=== PATIENT | male | born 1940 | race Two or more races ===

== ENCOUNTER → 2017-11-12 15:33 | Outpatient (CLI) | payer MEDICARE, BC, SELFPAY | PROVIDERS: Family Provider Family Medicine Geriatric Medicine; PCP Family Medicine Geriatric Medicine; Visit Provider Family Medicine Geriatric Medicine | DX: R68.83 Chills (without fever) (principal) | CPT/HCPCS: 87633 ==

== ENCOUNTER → 2017-11-27 08:20 | Outpatient (CLI) | payer MEDICARE, BC, SELFPAY ==
[2017-11-27 10:07] LABS: AST(SGOT) 21 U/L (15-37); Alanine Aminotransfer ALT/SGPT 23 U/L (16-61); Albumin, Serum 3.9 g/dL (3.2-5.0); Alkaline Phosphatase 55 U/L (45-117); Bilirubin, Direct 0.21 mg/dL (0.00-0.30); Cholesterol 180 mg/dL (200); Globulin 3.4 g/dL (2.2-4.2); High Density Lipoprotein 55 mg/dL; Protein, Total 7.3 g/dL (6.4-8.2); Triglycerides 99 mg/dL; Very Low Density Lipoprotein 20 mg/dL (5-40)
== END ==
PROVIDERS: Family Provider Family Medicine Geriatric Medicine; PCP Family Medicine Geriatric Medicine; Visit Provider Physician Assistant Medical
DX: E78.5 Hyperlipidemia, unspecified (principal); Z79.899 Other long term (current) drug therapy
CPT/HCPCS: 36415; 80061; 80076

== ENCOUNTER → 2017-12-18 09:36 | Outpatient (CLI) | payer MEDICARE, BC, SELFPAY ==
[2017-12-18 13:45] LABS: Absolute Lymphocyte Count 2.21 X10^3/ul (0.83-4.51); Absolute Neutrophil Count 3.9 X10^3/uL (2.0-7.7); Basophil# 0.02 X10^3/uL; Basophil% 0.3 % (0-1); Eosinophil# 0.16 X10^3/uL; Eosinophils% 2.3 % (0-5); Hematocrit 37.6 % (40-54); Lymphocyte # 2.21 X10^3/ul (4.0); Mean Corp Hgb Conc 34.6 g/gl (32-36); Mean Corpuscular Hgb 33.8 pg (27.0-32.0); Mean Corpuscular Volume 97.7 fL (80-94); Mean Platelet Vol. 11.8 fl (6.2-12.0); Monocyte# 0.62 X10^3/uL; Neutrophil # 3.88 X10^3/uL (2.7-7.7); Neutrophil % 56.3 % (47-70); POSITIVE COUNT NO; POSITIVE DIFFERENTIAL NO; POSITIVE MORPHOLOGY NO; Platelet Count 166 K/mm3 (150-450); RBC Distribution Width CV 14.6 % (11.6-14.6); RBC Distribution Width SD 50.5 fl (35.1-43.9); Red Blood Count 3.85 M/mm3 (4.6-6.2); White Blood Count 6.9 K/mm3 (4.4-11.0)
[2017-12-18 14:14] LABS: ALB/GLOB Ratio 1.2 RATIO (0.9-2.4); AST(SGOT) 22 U/L (15-37); Alanine Aminotransfer ALT/SGPT 24 U/L (16-61); Albumin, Serum 3.8 g/dL (3.2-5.0); Alkaline Phosphatase 58 U/L (45-117); Anion Gap 5 (5-15); BUN 20 mg/dL (7-18); BUN/Creat Ratio 18.7 RATIO (10-20); Calcium,Total 9.2 mg/dL (8.5-10.1); Chloride 107 mmol/L (98-107); Creatinine, Serum 1.07 mg/dL (0.70-1.30); EST Glomerular Filtration Rate 71 mL/min (>60); Est Glom Filt Rate - Afr Amer 86 mL/min (>60); Globulin 3.3 g/dL (2.2-4.2); Glucose 93 mg/dL (74-106); Potassium 4.1 mmol/L (3.5-5.1); Protein, Total 7.1 g/dL (6.4-8.2); Sodium Level 139 mmol/L (136-145); Thyroid Stim Hormone (TSH) 0.71 uIU/mL (0.358-3.74); Uric Acid 5.6 mg/dL (3.5-7.2)
[2017-12-19 10:00] LABS: Vitamin D,25 Hydroxy 22.4 ng/mL (29.95-100.01)
== END ==
PROVIDERS: Family Provider Family Medicine Geriatric Medicine; PCP Family Medicine Geriatric Medicine; Visit Provider Family Medicine Geriatric Medicine
DX: E55.9 Vitamin D deficiency, unspecified (principal); F52.8 Other sexual dysfunction not due to a substance or known physiological condition; M10.9 Gout, unspecified; R53.83 Other fatigue
CPT/HCPCS: 36415; 80053; 82306; 84403; 84443; 84550; 85025

== ENCOUNTER → 2018-06-03 08:47 | Outpatient (CLI) | payer MEDICARE, BC, SELFPAY ==
[2018-06-03 10:14] LABS: AST(SGOT) 23 U/L (15-37); Alanine Aminotransfer ALT/SGPT 20 U/L (16-61); Albumin, Serum 3.7 g/dL (3.2-5.0); Alkaline Phosphatase 54 U/L (45-117); Bilirubin, Direct 0.19 mg/dL (0.00-0.30); Cholesterol 165 mg/dL (200); Globulin 3.5 g/dL (2.2-4.2); High Density Lipoprotein 49 mg/dL; Protein, Total 7.2 g/dL (6.4-8.2); Triglycerides 78 mg/dL; Very Low Density Lipoprotein 16 mg/dL (5-40)
== END ==
LOC: LAB 08:50 → MTLAB 08:50
PROVIDERS: Family Provider Family Medicine Geriatric Medicine; PCP Family Medicine Geriatric Medicine; Referring Provider Physician Assistant Medical; Visit Provider Physician Assistant Medical
DX: E78.5 Hyperlipidemia, unspecified (principal)
CPT/HCPCS: 36415; 80061; 80076

== ENCOUNTER 2018-11-21 05:16 | Observation (INO) | payer MEDICARE, BC, SELFPAY ==
[2018-11-21] VITALS (7 sets, daily range): BP systolic 132–192; BP diastolic 78–98; PULSE 67–101; RESP 16–18; TEMP 36.4–37.4; O2SAT 97–100; BMI 28.8; BMI 29.4
--- NOTE | 2018-11-21 05:37 | EKG12_ITS ---
Test Reason : DIZZINESS Blood Pressure : / mmHG Vent. Rate : 065 BPM Atrial Rate : 065 BPM P-R Int : 170 ms QRS Dur : 150 ms QT Int : 424 ms P-R-T Axes : 053 -53 003 degrees QTc Int : 440 ms Normal sinus rhythm Right bundle branch block Left anterior fascicular block Bifascicular block Septal infarct , age undetermined Abnormal ECG Confirmed by CRICKET PADRON ([id number]), editor & co founder KOSTA PICHARDO ([id number] on 11/23/2018 4:41:36 PM Referred By: GEORGINA Confirmed By:CRICKET PADRON
[2018-11-21 05:43] LABS: Absolute Lymphocyte Count 3.56 X10^3/ul (0.83-4.51); Absolute Neutrophil Count 2.6 X10^3/uL (2.0-7.7); Basophil# 0.04 X10^3/uL; Basophil% 0.6 % (0-1); Eosinophil# 0.28 X10^3/uL; Hematocrit 38.3 % (40-54); Hemoglobin 13.5 g/dl (13.0-16.5); Lymphocyte # 3.56 X10^3/ul (4.0); Lymphocyte % 50.7 % (19-41); Mean Corp Hgb Conc 35.2 g/gl (32-36); Mean Corpuscular Hgb 33.1 pg (27.0-32.0); Mean Corpuscular Volume 93.9 fL (80-94); Mean Platelet Vol. 11.1 fl (6.2-12.0); Monocyte# 0.54 X10^3/uL; Monocyte% 7.7 % (0-10); Neutrophil # 2.58 X10^3/uL (2.7-7.7); Neutrophil % 36.7 % (47-70); POSITIVE COUNT NO; POSITIVE DIFFERENTIAL NO; POSITIVE MORPHOLOGY NO; Platelet Count 194 K/mm3 (150-450); RBC Distribution Width CV 14.9 % (11.6-14.6); RBC Distribution Width SD 49.2 fl (35.1-43.9); Red Blood Count 4.08 M/mm3 (4.6-6.2)
[2018-11-21] MEDS: Ondansetron 4 MG/2 ML Vial IV ×2 (05:54→06:49)
[2018-11-21] MEDS: 0.9% Normal Saline 1,000 ML 1000 ML IV (05:54)
--- NOTE | 2018-11-21 05:57 | ED.DCSUM_ITS ---
- ER Visit Summary Date of Service: 11/21/18 Chief Complaint: Dizziness History of Present Illness: The patient is a 78 M who states that he woke this morning and use the bathroom came back and sat on the bed and felt dizzy. states that he was sweaty. After little bit they decided to come to the formerly [facility] department because he has history of coronary artery disease. At no point did he have chest pain or shortness of breath. No headache. He did not feel that the room was spinning. He was able to drive himself to the department. Patient states that once here he had some vomiting. He reports overall he feels significantly better but still has some nausea. He denies any abdominal pain. No abdominal distention. The patient reports that the only thing he did atypical yesterday was eat some dried bananas and seeds before bedtime. Physical Examination: Afebrile noted hypertension 192/98 otherwise vital signs are stable the blood pressure was taken while the patient vomiting Gen: Well-nourished well-developed Head: Normocephalic atraumatic Eyes: Perrl EOMI no nystagmus ENT: TMs clear no rhinorrhea moist mucous membranes Neck: Supple no lymphadenopathy no JVD nontender CVS: Regular rate rhythm no murmurs normal S1-S2 Respiratory: No distress clear to auscultation bilaterally chest nontender Abdomen: Soft nontender nondistended normal bowel sounds no masses Back: Nontender Extremity: Nontender no edema Skin: Normal color no rash Neuro: alert orientated ?3 CN II-XII intact normal strength sensation reflexes gait cerebellar Psych: Normal affect normal mood Test Results: EKG shows a sinus rhythm with right bundle branch block and left anterior fascicular block. This appears unchanged from prior EKG. CBC and CMP were normal. Emergency Department Course and Treatment: The patient received IV fluids and Zofran. Repeat examination the patient's blood pressure is down to 163/88. He states he continues to have no dizziness or lightheadedness. He states he still has some nausea. He ambulated and did well. He said he felt well. However when he got back to the room he vomited. Patient received additional Zofran and head CT was ordered. This was negative. After CT I reevaluated the patient. He tells me he is now feeling dizzy. He does have a nystagmus with the fast component to the right. I am going to give some valium. Impression: 1. Dizziness 2. Vomiting This note was generated with [employer] dictation software. It may contain incorrect words, spelling, and punctuation that were not noted in review of the chart prior to signing ED Disposition - Plan for ED Patient: Disposition: Home or Assisted Living Instructions: ED Nausea Vomiting Prescriptions: Ondansetron [Zofran Odt] 4 mg PO Q6H PRN PRN #14 tab PRN Reason: Nausea Referrals: Jones Madrigal Chi, MD [Primary Care Provider] - As Needed
[2018-11-21 05:59] LABS: ALB/GLOB Ratio 1.1 RATIO (0.9-2.4); AST(SGOT) 41 U/L (15-37); Alanine Aminotransfer ALT/SGPT 25 U/L (16-61); Alkaline Phosphatase 73 U/L (45-117); Anion Gap 5 (5-15); BUN 20 mg/dL (7-18); BUN/Creat Ratio 17.1 RATIO (10-20); Calcium,Total 9.2 mg/dL (8.5-10.1); Chloride 109 mmol/L (98-107); Creatinine, Serum 1.17 mg/dL (0.70-1.30); EST Glomerular Filtration Rate 64 mL/min (>60); Est Glom Filt Rate - Afr Amer 78 mL/min (>60); Estimated Creatinine Clearance 47.71 ml/min; Globulin 3.8 g/dL (2.2-4.2); Glucose 130 mg/dL (74-106); Potassium 4.8 mmol/L (3.5-5.1); Protein, Total 7.8 g/dL (6.4-8.2); Sodium Level 140 mmol/L (136-145)
--- NOTE | 2018-11-21 06:42 | CT_ITS ---
STUDY: CT BRAIN WITHOUT CONTRAST REASON FOR EXAM: Male, 78 years old. Dizziness RADIATION DOSAGE (If Supplied By Facility): CTDIvol = ( 44.99 ) mGy, DLP = ( 745.49 ) mGycm TECHNIQUE: Transaxial CT imaging of the brain was performed without administration of intravenous contrast material. Individualized dose optimization techniques were used for this CT. COMPARISON: No relevant priors. FINDINGS: Normal soft tissue structures. Normal calvarium. Normal size ventricles and extra-axial spaces for the patient's age. Normal white matter tracts of the cerebral hemispheres. Normal basal ganglia and thalami. Normal brainstem. Normal cerebellum. There is no intracranial hemorrhage. There are no findings of an acute ischemic infarction. Normal visualized paranasal sinuses. CT/Brain/Head without Contrast IMPRESSION: Normal unenhanced CT scan of the brain. No acute findings in the brain Electronically Signed: Jono Walls MD at 7:23 EDT Tel , Service support ,
[2018-11-21] MEDS: diazePAM 5 MG Tablet 2.5 MG PO (08:37)
--- NOTE | 2018-11-21 09:21 | ED.VISSUMM ---
- ER Visit Summary Date of Service: 11/21/18 Chief Complaint: [Addendum to the initial dictation by Dr. Phan Paz] History of Present Illness: The patient is a 78 M [presented to the emergency department with complaint of dizziness and vomiting that started this morning. Patient was fully evaluated by Dr. Paz and workup including blood work and CT scan of the brain were unremarkable. Patient was noted to have nystagmus and it was felt that likely he had benign positional vertigo. Patient was ordered Valium and I was asked to reevaluate the patient after treatment.] Physical Examination: [] Test Results: [] Emergency Department Course and Treatment: [After Valium patient continues to complain of dizziness and does not feel he can ambulate. Patient continues to complain of nausea with standing.] Treatment Plan: [Admit] Disposition: [Admit] Impression: [Vertigo Difficulty ambulating Intractable nausea] This note was generated with [employer] dictation software. It may contain incorrect words, spelling, and punctuation that were not noted in review of the chart prior to signing ED Disposition - Plan for ED Patient: Disposition: Home or Assisted Living Instructions: ED Nausea Vomiting Prescriptions: Ondansetron [Zofran Odt] 4 mg PO Q6H PRN PRN #14 tab PRN Reason: Nausea Referrals: Jones Madrigal Chi, MD [Primary Care Provider] - As Needed
[2018-11-21] MEDS: Enoxaparin 40 MG/0.4 ML Syringe SC (12:24)
[2018-11-21] MEDS: Lisinopril 10 MG Tablet PO (12:25)
[2018-11-21] MEDS: Aspirin E.C. 81 MG Tablet PO (12:25)
[2018-11-21] MEDS: Metoprolol(XL)Succ 100 MG Tablet PO (12:25)
[2018-11-21] MEDS: Clopidogrel Bisulfate 75 MG Tablet PO (12:25)
[2018-11-21] MEDS: Allopurinol 300 MG Tablet PO (12:26)
--- NOTE | 2018-11-21 14:41 | HP.PCM_ITS ---
Problem List (1) HTN (hypertension) Status: Chronic (2) Carotid bruit Status: Chronic (3) Atherosclerotic heart disease of [place] coronary artery without angina pectoris Status: Chronic (4) HLD (hyperlipidemia) Status: Chronic History of Present Illness Date of Admission: 11/21/18 Chief Complaint: Vertigo, nausea with emesis. The patient is a 78 year old M who presents emergency room due to acute vertigo with nausea and emesis which began early this morning. He states he normally wakes up very early in the morning and this morning upon waking he had sudden spinning sensation in which he did not feel stable on his feet with subsequent nausea and vomiting. He denies chest pain, shortness of breath. He reports he recently had an upper respiratory infection which has since resolved. Denies abdominal pain, diarrhea. Denies other associated complaints. He has a past medical history of CAD, hypertension, hyperlipidemia, gout, alcohol abuse. Past Medical History Past Medical History (Chronic Problems): Chronic Problems (Last Reviewed 06/19/18 @ 10:04 by Andrei Henry MD) HTN (hypertension) (Chronic) Carotid bruit (Chronic) Atherosclerotic heart disease of [place] coronary artery without angina pectoris (Chronic) HLD (hyperlipidemia) (Chronic) Medical History: Medical History (Last Reviewed 06/19/18 @ 10:04 by Andrei Henry MD) HTN (hypertension) (Chronic) I10 Carotid bruit (Chronic) R09.89 Atherosclerotic heart disease of [place] coronary artery without angina pectoris (Chronic) I25.10 HLD (hyperlipidemia) (Chronic) E78.5 Hypothyroidism E03.9 Allergies No Known Allergies Allergy (Verified 11/21/18 05:17) Home Medications: Ambulatory Orders Medication Instructions Recorded allopurinol 300 mg tablet 300 mg PO QDAY 90 Days #90 tab 12/01/17 aspirin 81 mg tablet,delayed 81 mg PO QDAY 12/01/17 release multivitamin tablet 1 tab PO QDAY 12/01/17 nitroglycerin 0.4 mg sublingual 0.4 mg SUBLINGUAL Q5-15M PRN 12/01/17 tablet selenium 200 mcg tablet 200 mcg PO QDAY 12/01/17 vitamin B complex tablet 1 tab PO QDAY 12/01/17 sildenafil 100 mg tablet 100 mg PO QDAY PRN 68 Days #68 tab 12/04/17 atorvastatin 40 mg tablet 40 mg PO QDAY 90 Days #90 tab 05/28/18 clopidogrel 75 mg tablet 75 mg PO QDAY 90 Days #90 tab 05/28/18 metoprolol succinate ER 100 mg 100 mg PO QDAY 90 Days #90 tab 05/28/18 tablet,extended release 24 hr Lisinopril [Prinivil] 10 mg PO QDAY 11/21/18 Ondansetron [Zofran Odt] 4 mg PO Q6H PRN PRN #14 tab 11/21/18 Surgical History: Surgical History (Last Reviewed 11/21/18 @ 14:40 by ARMANDO Joel) History of rectal polypectomy Onset Date: ~1997 Z98.890, Z87.19 History of total bilateral knee replacement (TKR) Onset Date: ~03/13/07 Z96.653 hx dengue fever Onset Date: ~05/27/05 [facility] History of left heart catheterization Onset Date: 02/21/06 Z98.890 Surgical History: - - Hernia repair. Psychiatric History: No pertinent psych hx Lives: Spouse/ Significant Other Smoking Status: Former smoker Alcohol: Heavy Drugs: None - *Family History Maternal Family History: Family History (Last Reviewed 11/21/18 @ 14:41 by ARMANDO Joel) Mother Hypertension Sister Hypertension Paternal Family History: Family History (Last Reviewed 11/21/18 @ 14:41 by ARMANDO Joel) Mother Hypertension Sister Hypertension History Items: - - Denies known paternal medical history including cardiac history. Review of Systems Constitutional: Denies: Chills, Fever, Weight Change HEENT: Denies: Head Aches, Sinus Congestion, Sinus Drainage Cardiovascular: Reports: - - Dizziness. Denies: Chest Pain, Edema, Palpitations, Syncope Respiratory: Denies: Cough, Shortness of breath at rest, Sputum production Gastrointestinal: Reports: Nausea, Vomiting. Denies: Abdominal Pain, Diarrhea Genitourinary: Denies: Dysuria Musculoskeletal: Denies: Joint Pain, Joint Tenderness Skin: Denies: Rash, Wounds Neurological: Denies: Numbness, Tingling, Focal weakness Psychiatric: Denies: Anxiety, Depression, Homicidal Ideations, Suicidal Ideations Hematologic/ Lymphatic: Denies: Easy Bruising, Easy Bleeding VTE Information - Inpt Only VTE Present on Admission: No VTE Mechan Device Prophylaxis: None VTE Pharm Prophylaxis ordered?: Yes - Physical Exam General: Alert, Oriented x3, Cooperative HEENT: Atraumatic, PERRLA, EOMI, Normocephalic Oral: Dry Mucosa Neck: Supple, No JVD, Negative Carotid Bruits Lungs: Clear to auscultation, Normal air movement Cardiovascular: Regular rate, Regular Rhythm, Normal S1, Normal S2, No murmurs Abdomen: Bowel Sounds Present, Soft, Non Tender, Non-Distended Extremities: No clubbing, No cyanosis, No edema, Capillary Refill Less than 3 Seconds Skin: No rashes, No breakdown Musculoskeletal: No Tenderness to Palpation of Joints or Extremities Neurological: Cranial nerves II-XII grossly intact, Neuro grossly intact Psych/Mental Status: Normal Affect, Appropriate Vital Signs Temp Pulse Resp BP Pulse Ox 97.9 F 81 16 154/85 H 97 11/21/18 10:48 11/21/18 12:25 11/21/18 10:48 11/21/18 10:48 11/21/18 10:48 Oxygen Delivery Method Room Air Weight: 176 lb 12.972 oz Body Mass Index (BMI) 29.4 Laboratory Tests Past 24 Hrs 11/21/18 11/21/18 05:28 05:28 WBC 7.0 RBC 4.08 L Hgb 13.5 Hct 38.3 L MCV 93.9 MCH 33.1 H MCHC 35.2 RDW 14.9 H RDW Differential 49.2 H Plt Count 194 MPV 11.1 Immature Gran % (Auto) 0.300 Neut % (Auto) 36.7 L Lymph % (Auto) 50.7 H [place] % (Auto) 7.7 Eos % (Auto) 4.0 Baso % (Auto) 0.6 Absolute Neuts (auto) 2.6 Absolute Lymphs (auto) 3.56 Total Counted Not Reportable Sodium 140 Potassium 4.8 Chloride 109 H Carbon Dioxide 26.0 Anion Gap 5 BUN 20 H Creatinine 1.17 Estim Creat Clear Calc 47.71 Est GFR (MDRD) Af Amer 78 Est GFR (MDRD) Non-Af 64 BUN/Creatinine Ratio 17.1 Glucose 130 H Calcium 9.2 Total Bilirubin 0.40 AST 41 H ALT 25 Alkaline Phosphatase 73 Total Protein 7.8 Albumin 4.0 Globulin 3.8 Albumin/Globulin Ratio 1.1 Assessment/Plan 1. Vertigo with intractable nausea-improved since admission. Continue scheduled Valium and as needed antiemetics. Anticipate discharge home tomorrow. Brain CT on admission normal. PT/OT. 2. CAD-continue aspirin, statin, Plavix, metoprolol. 3. Hypertension-stable, continue home lisinopril, metoprolol regimen. 4. Hyperlipidemia-continue statin. 5. Gout-continue allopurinol regimen. 6. Alcohol abuse-patient reports 5-6 drinks per day. AST mildly elevated. Encouraged reduction in alcohol use. DVT prophylaxis-Lovenox subcu This patient was seen by ARMANDO Joel under the supervision of Dr. Vallecillo.
[2018-11-21] MEDS: diazePAM 2 MG Tablet 4 MG PO ×3 (14:59→21:15)
[2018-11-21] MEDS: Atorvastatin Calcium 40 MG Tablet PO (21:12)
[2018-11-22 02:11] VITALS: BP 131/77; PULSE 67; RESP 16; TEMP 36.5; O2SAT 98
[2018-11-22 08:11] VITALS: BP 147/75; PULSE 69; RESP 18; TEMP 36.8; O2SAT 98
[2018-11-22 08:44] VITALS: BP 147/75; PULSE 69
[2018-11-22] MEDS: Aspirin E.C. 81 MG Tablet PO (08:44)
[2018-11-22] MEDS: Metoprolol(XL)Succ 100 MG Tablet PO (08:44)
[2018-11-22] MEDS: Enoxaparin 40 MG/0.4 ML Syringe SC (08:44)
[2018-11-22] MEDS: Allopurinol 300 MG Tablet PO (08:44)
[2018-11-22] MEDS: Clopidogrel Bisulfate 75 MG Tablet PO (08:44)
[2018-11-22] MEDS: Lisinopril 10 MG Tablet PO (08:45)
[2018-11-22] MEDS: diazePAM 2 MG Tablet 4 MG PO (08:49)
--- NOTE | 2018-11-22 09:51 | DCINST_ITS ---
You will use the following diet at home:: Cardiac Discharge Activity: Return to Normal Activity Call your doctor if you observe: Numbness or Tingling, Shortness of breath, Dizziness, Fainting spells, Chest pain Instructions: ED Nausea Vomiting Allergies/Adverse Reactions: Allergies No Known Allergies Allergy (Verified 11/21/18 05:17) Medications to take at Discharge allopurinol 300 mg tablet 300 mg PO QDAY 90 Days #90 tab 12/01/17 aspirin 81 mg tablet,delayed release 81 mg PO QDAY 12/01/17 multivitamin tablet 1 tab PO QDAY 12/01/17 nitroglycerin 0.4 mg sublingual tablet 0.4 mg SUBLINGUAL Q5-15M PRN 12/01/17 selenium 200 mcg tablet 200 mcg PO QDAY 12/01/17 vitamin B complex tablet 1 tab PO QDAY 12/01/17 sildenafil 100 mg tablet 100 mg PO QDAY PRN 68 Days #68 tab 12/04/17 atorvastatin 40 mg tablet 40 mg PO QDAY 90 Days #90 tab 05/28/18 clopidogrel 75 mg tablet 75 mg PO QDAY 90 Days #90 tab 05/28/18 metoprolol succinate ER 100 mg tablet,extended release 24 hr 100 mg PO QDAY 90 Days #90 tab 05/28/18 Lisinopril [Prinivil] 10 mg PO QDAY 11/21/18 Ondansetron [Zofran Odt] 4 mg PO Q6H PRN PRN #14 tab 11/21/18 Diazepam [Valium] 2 mg PO 4X/DAY PRN #12 tablet 11/22/18 The following prescriptions were given: Ondansetron [Zofran Odt] 4 mg PO Q6H PRN PRN #14 tab PRN Reason: Nausea Diazepam [Valium] 2 mg PO 4X/DAY PRN #12 tablet PRN Reason: Vertigo Primary Care Physician: Jones Madrigal Chi, MD [Primary Care Provider] - As Needed Please follow up with your Primary Care Physician in: 1 Week Test Results: Test results from this visit will be discussed in further detail at your follow- up appointment, if applicable. Please Follow Up With: Andrei Henry MD When: As scheduled Proposed Discharge Date: 11/22/18
--- NOTE | 2018-11-22 09:52 | PCM.DC.SUM ---
Discharge Date and Diagnosis Date of Admission: 11/21/18 Date of Discharge: 11/22/18 - Primary Discharge Diagnosis 1. Acute vertigo 2. CAD 3. Hypertension 4. Hyperlipidemia 5. Gout 6. Alcohol abuse - Secondary Discharge Diagnosis Chronic Problems (Last Reviewed 06/19/18 @ 10:04 by Andrei Henry MD) HTN (hypertension) (Chronic) Carotid bruit (Chronic) Atherosclerotic heart disease of [place] coronary artery without angina pectoris (Chronic) HLD (hyperlipidemia) (Chronic) Hospital Course and Treatment Imaging Results: Diagnostic Data Brain CT 11/21/18 06:42 IMPRESSION: Normal unenhanced CT scan of the brain. No acute findings in the brain Electronically Signed: Jono Walls MD at 7:23 EDT Tel , Service support , Operations: None Procedures: None Summary of Care Provided: The patient is a 78 year old M admitted 11/21/2018 due to vertigo, nausea with emesis. 1. Vertigo with intractable nausea-resolved. Brain CT on admission normal. PRN valium if vertigo returns. Patient reports he has had vertigo symptoms in the past as well. Recommended follow up with ENT if symptoms return. Follow-up with primary care physician in 1 week. 2. CAD-continue aspirin, statin, Plavix, metoprolol. 3. Hypertension-stable, continue home lisinopril, metoprolol regimen. 4. Hyperlipidemia-continue statin. 5. Gout-continue allopurinol regimen. 6. Alcohol abuse-patient reports 5-6 drinks per day. AST mildly elevated. Encouraged reduction in alcohol use. General: Alert, Oriented x3, Cooperative HEENT: Atraumatic, PERRLA, EOMI, Normocephalic Oral: Dry Mucosa Neck: Supple, No JVD, Negative Carotid Bruits Lungs: Clear to auscultation, Normal air movement Cardiovascular: Regular rate, Regular Rhythm, Normal S1, Normal S2, No murmurs Abdomen: Bowel Sounds Present, Soft, Non Tender, Non-Distended Extremities: No clubbing, No cyanosis, No edema, Capillary Refill Less than 3 Seconds Skin: No rashes, No breakdown Musculoskeletal: No Tenderness to Palpation of Joints or Extremities Neurological: Cranial nerves II-XII grossly intact, Neuro grossly intact Psych/Mental Status: Normal Affect, Appropriate Patient seen and examined prior to discharge. Physical assessment as noted above. Patient is stable for discharge with follow up recommendations as noted above. This patient was seen by ARMANDO Joel under the supervision of Dr. Vallecillo. - Physical Exam Vital Signs Temp Pulse Resp BP Pulse Ox 98.2 F 69 18 147/75 H 98 11/22/18 08:11 11/22/18 08:44 11/22/18 08:11 11/22/18 08:44 11/22/18 08:11 Oxygen Delivery Method Room Air Weight: 176 lb 12.972 oz Body Mass Index (BMI) 29.4 Intake and Output for Last 24 Hours 11/20/18 11/21/18 11/22/18 23:59 23:59 23:59 Intake Total 1300 / 1300 Output Total 650 / 650 1100 / 1100 Balance -650 / -650 200 / 200 Discharge Diet: Low fat/ Low Cholesterol Discharge Activity: Return to Normal Activity Call your doctor if you observe: Numbness or Tingling, Shortness of breath, Dizziness, Fainting spells, Chest pain Home Medications: Medications to take at Discharge allopurinol 300 mg tablet 300 mg PO QDAY 90 Days #90 tab 12/01/17 aspirin 81 mg tablet,delayed release 81 mg PO QDAY 12/01/17 multivitamin tablet 1 tab PO QDAY 12/01/17 nitroglycerin 0.4 mg sublingual tablet 0.4 mg SUBLINGUAL Q5-15M PRN 12/01/17 selenium 200 mcg tablet 200 mcg PO QDAY 12/01/17 vitamin B complex tablet 1 tab PO QDAY 12/01/17 sildenafil 100 mg tablet 100 mg PO QDAY PRN 68 Days #68 tab 12/04/17 atorvastatin 40 mg tablet 40 mg PO QDAY 90 Days #90 tab 05/28/18 clopidogrel 75 mg tablet 75 mg PO QDAY 90 Days #90 tab 05/28/18 metoprolol succinate ER 100 mg tablet,extended release 24 hr 100 mg PO QDAY 90 Days #90 tab 05/28/18 Lisinopril [Prinivil] 10 mg PO QDAY 11/21/18 Ondansetron [Zofran Odt] 4 mg PO Q6H PRN PRN #14 tab 11/21/18 Diazepam [Valium] 2 mg PO 4X/DAY PRN #12 tablet 11/22/18 Following Prescrptions Were Given to Patient: Ondansetron [Zofran Odt] 4 mg PO Q6H PRN PRN #14 tab PRN Reason: Nausea Diazepam [Valium] 2 mg PO 4X/DAY PRN #12 tablet PRN Reason: Vertigo Primary Care Physician: Jones Madrigal Chi, MD [Primary Care Provider] - As Needed Please follow up with your Primary Care Physician in: 1 Week Please Follow Up With: Andrei Henry MD When: As scheduled Patient Instructions: ED Nausea Vomiting Disposition: Home Minutes spent on discharge:: 35 Patient Condition:: Stable Medical Necessity - Tobacco Use Smoking Status: Former smoker Meaningful Use Info Meaningful Use Diagnoses (Choose all that apply): None applicable
--- NOTE | 2018-11-22 09:56 | DS.PCM_ITS ---
Discharge Date and Diagnosis Date of Admission: 11/21/18 Date of Discharge: 11/22/18 - Primary Discharge Diagnosis 1. Acute vertigo 2. CAD 3. Hypertension 4. Hyperlipidemia 5. Gout 6. Alcohol abuse - Secondary Discharge Diagnosis Chronic Problems (Last Reviewed 06/19/18 @ 10:04 by Andrei Henry MD) HTN (hypertension) (Chronic) Carotid bruit (Chronic) Atherosclerotic heart disease of [place] coronary artery without angina pectoris (Chronic) HLD (hyperlipidemia) (Chronic) Hospital Course and Treatment Imaging Results: Diagnostic Data Brain CT 11/21/18 06:42 IMPRESSION: Normal unenhanced CT scan of the brain. No acute findings in the brain Electronically Signed: Jono Walls MD at 7:23 EDT Tel , Service support , Operations: None Procedures: None Summary of Care Provided: The patient is a 78 year old M admitted 11/21/2018 due to vertigo, nausea with emesis. 1. Vertigo with intractable nausea-resolved. Brain CT on admission normal. PRN valium if vertigo returns. Patient reports he has had vertigo symptoms in the past as well. Recommended follow up with ENT if symptoms return. Follow-up with primary care physician in 1 week. 2. CAD-continue aspirin, statin, Plavix, metoprolol. 3. Hypertension-stable, continue home lisinopril, metoprolol regimen. 4. Hyperlipidemia-continue statin. 5. Gout-continue allopurinol regimen. 6. Alcohol abuse-patient reports 5-6 drinks per day. AST mildly elevated. Enc ouraged reduction in alcohol use. General: Alert, Oriented x3, Cooperative HEENT: Atraumatic, PERRLA, EOMI, Normocephalic Oral: Dry Mucosa Neck: Supple, No JVD, Negative Carotid Bruits Lungs: Clear to auscultation, Normal air movement Cardiovascular: Regular rate, Regular Rhythm, Normal S1, Normal S2, No murmurs Abdomen: Bowel Sounds Present, Soft, Non Tender, Non-Distended Extremities: No clubbing, No cyanosis, No edema, Capillary Refill Less than 3 Seconds Skin: No rashes, No breakdown Musculoskeletal: No Tenderness to Palpation of Joints or Extremities Neurological: Cranial nerves II-XII grossly intact, Neuro grossly intact Psych/Mental Status: Normal Affect, Appropriate Patient seen and examined prior to discharge. Physical assessment as noted above. Patient is stable for discharge with follow up recommendations as noted above. This patient was seen by ARMANDO Joel under the supervision of Dr. Vallecillo. - Physical Exam Vital Signs Temp Pulse Resp BP Pulse Ox 98.2 F 69 18 147/75 H 98 11/22/18 08:11 11/22/18 08:44 11/22/18 08:11 11/22/18 08:44 11/22/18 08:11 Oxygen Delivery Method Room Air Weight: 176 lb 12.972 oz Body Mass Index (BMI) 29.4 Intake and Output for Last 24 Hours 11/20/18 11/21/18 11/22/18 23:59 23:59 23:59 Intake Total 1300 / 1300 Output Total 650 / 650 1100 / 1100 Balance -650 / -650 200 / 200 Discharge Diet: Low fat/ Low Cholesterol Discharge Activity: Return to Normal Activity Call your doctor if you observe: Numbness or Tingling, Shortness of breath, Dizziness, Fainting spells, Chest pain Home Medications: Medications to take at Discharge allopurinol 300 mg tablet 300 mg PO QDAY 90 Days #90 tab 12/01/17 aspirin 81 mg tablet,delayed release 81 mg PO QDAY 12/01/17 multivitamin tablet 1 tab PO QDAY 12/01/17 nitroglycerin 0.4 mg sublingual tablet 0.4 mg SUBLINGUAL Q5-15M PRN 12/01/17 selenium 200 mcg tablet 200 mcg PO QDAY 12/01/17 vitamin B complex tablet 1 tab PO QDAY 12/01/17 sildenafil 100 mg tablet 100 mg PO QDAY PRN 68 Days #68 tab 12/04/17 atorvastatin 40 mg tablet 40 mg PO QDAY 90 Days #90 tab 05/28/18 clopidogrel 75 mg tablet 75 mg PO QDAY 90 Days #90 tab 05/28/18 metoprolol succinate ER 100 mg tablet,extended release 24 hr 100 mg PO QDAY 90 Days #90 tab 05/28/18 Lisinopril [Prinivil] 10 mg PO QDAY 11/21/18 Ondansetron [Zofran Odt] 4 mg PO Q6H PRN PRN #14 tab 11/21/18 Diazepam [Valium] 2 mg PO 4X/DAY PRN #12 tablet 11/22/18 Following Prescrptions Were Given to Patient: Ondansetron [Zofran Odt] 4 mg PO Q6H PRN PRN #14 tab PRN Reason: Nausea Diazepam [Valium] 2 mg PO 4X/DAY PRN #12 tablet PRN Reason: Vertigo Primary Care Physician: Jones Madrigal Chi, MD [Primary Care Provider] - As Needed Please follow up with your Primary Care Physician in: 1 Week Please Follow Up With: Andrei Henry MD When: As scheduled Patient Instructions: ED Nausea Vomiting Disposition: Home Minutes spent on discharge:: 35 Patient Condition:: Stable Medical Necessity - Tobacco Use Smoking Status: Former smoker Meaningful Use Info Meaningful Use Diagnoses (Choose all that apply): None applicable
[2018-11-22 12:38] VITALS: BP 180/90; PULSE 75; RESP 18; TEMP 36.5; O2SAT 99
== END 2018-11-22 12:45 | disposition home or self-care (01) ==
LOC: ED 06:59 → MS3 10:20
PROVIDERS: Admitting Provider Internal Medicine; Emergency Provider Emergency Medicine; Family Provider Family Medicine Geriatric Medicine; PCP Family Medicine Geriatric Medicine; Visit Provider Internal Medicine
DX: R42 Dizziness and giddiness (principal); I25.10 Atherosclerotic heart disease of native coronary artery without angina pectoris; I45.2 Bifascicular block; I10 Essential (primary) hypertension; E78.5 Hyperlipidemia, unspecified; M10.9 Gout, unspecified; F10.10 Alcohol abuse, uncomplicated; Z79.899 Other long term (current) drug therapy; Z79.82 Long term (current) use of aspirin; Z87.891 Personal history of nicotine dependence
CPT/HCPCS: 70450; 80053; 85025; 93005; 96372; 96374; 96376; 97161; 97165; 99218; 99285; J7030; A4216; G0378; J2405

== ENCOUNTER → 2018-12-24 11:38 | Outpatient (CLI) | payer MEDICARE, BC, SELFPAY ==
[2018-11-21 10:47] VITALS: BMI 29.4
[2018-12-24 12:48] LABS: Absolute Lymphocyte Count 2.13 X10^3/ul (0.83-4.51); Absolute Neutrophil Count 3.4 X10^3/uL (2.0-7.7); Basophil# 0.04 X10^3/uL; Basophil% 0.7 % (0-1); Eosinophil# 0.22 X10^3/uL; Eosinophils% 3.6 % (0-5); Hematocrit 40.4 % (40-54); Hemoglobin 13.6 g/dl (13.0-16.5); Lymphocyte # 2.13 X10^3/ul (4.0); Mean Corp Hgb Conc 33.7 g/gl (32-36); Mean Corpuscular Hgb 32.2 pg (27.0-32.0); Mean Corpuscular Volume 95.7 fL (80-94); Monocyte# 0.28 X10^3/uL; Monocyte% 4.6 % (0-10); Neutrophil % 55.9 % (47-70); POSITIVE COUNT NO; POSITIVE DIFFERENTIAL NO; POSITIVE MORPHOLOGY NO; Platelet Count 175 K/mm3 (150-450); RBC Distribution Width CV 14.3 % (11.6-14.6); RBC Distribution Width SD 48.2 fl (35.1-43.9); Red Blood Count 4.22 M/mm3 (4.6-6.2); White Blood Count 6.1 K/mm3 (4.4-11.0)
[2018-12-24 13:14] LABS: ALB/GLOB Ratio 1.1 RATIO (0.9-2.4); AST(SGOT) 27 U/L (15-37); Alanine Aminotransfer ALT/SGPT 25 U/L (16-61); Albumin, Serum 3.9 g/dL (3.2-5.0); Alkaline Phosphatase 39 U/L (45-117); Anion Gap 6 (5-15); BUN 20 mg/dL (7-18); BUN/Creat Ratio 18.3 RATIO (10-20); Calcium,Total 8.7 mg/dL (8.5-10.1); Chloride 106 mmol/L (98-107); Creatinine, Serum 1.09 mg/dL (0.70-1.30); EST Glomerular Filtration Rate 70 mL/min (>60); Est Glom Filt Rate - Afr Amer 84 mL/min (>60); Globulin 3.4 g/dL (2.2-4.2); Glucose 78 mg/dL (74-106); Potassium 3.7 mmol/L (3.5-5.1); Protein, Total 7.3 g/dL (6.4-8.2); Sodium Level 137 mmol/L (136-145); Thyroid Stim Hormone (TSH) 0.64 uIU/mL (0.358-3.74); Uric Acid 6.2 mg/dL (3.5-7.2)
== END ==
PROVIDERS: Family Provider Family Medicine Geriatric Medicine; PCP Family Medicine Geriatric Medicine; Visit Provider Family Medicine Geriatric Medicine
DX: E23.6 Other disorders of pituitary gland (principal); E55.9 Vitamin D deficiency, unspecified; I10 Essential (primary) hypertension; M10.9 Gout, unspecified
CPT/HCPCS: 36415; 80053; 82306; 84403; 84443; 84550; 85025

== ENCOUNTER → 2018-12-31 07:10 | Outpatient (CLI) | payer MEDICARE, BC, SELFPAY ==
[2018-11-21 10:47] VITALS: BMI 29.4
[2018-12-31 10:13] LABS: AST(SGOT) 21 U/L (15-37); Alanine Aminotransfer ALT/SGPT 24 U/L (16-61); Albumin, Serum 3.7 g/dL (3.2-5.0); Alkaline Phosphatase 49 U/L (45-117); Bilirubin, Direct 0.17 mg/dL (0.00-0.30); Cholesterol 146 mg/dL (200); Globulin 3.5 g/dL (2.2-4.2); High Density Lipoprotein 48 mg/dL; Protein, Total 7.2 g/dL (6.4-8.2); Triglycerides 88 mg/dL; Very Low Density Lipoprotein 18 mg/dL (5-40)
== END ==
PROVIDERS: Family Provider Family Medicine Geriatric Medicine; PCP Family Medicine Geriatric Medicine; Referring Provider Nurse Practitioner Family; Visit Provider Nurse Practitioner Family
DX: E78.5 Hyperlipidemia, unspecified (principal)
CPT/HCPCS: 36415; 80061; 80076

== ENCOUNTER → 2019-01-11 | Outpatient (CLI) | payer MEDICARE, BC, SELFPAY ==
[2019-01-05 11:03] VITALS: BMI 29.2
--- NOTE | 2019-01-11 13:38 | STRESSREP ---
Stress Test Report Pharmacologic myocardial perfusion stress test. 78-year-old male with a history of coronary artery disease. Medications: Aspirin, metoprolol, lisinopril, atorvastatin. Stress protocol: Resting EKG demonstrates sinus bradycardia with a rate of 52 bpm right bundle branch block is noted. Resting blood pressures 170/90 mmHg. 0.4 mg of regadenoson was infused per usual protocol followed by rapid intravenous and flush injection continuous EKG monitoring was performed the maximum heart rate was 86 bpm which was 60% of maximum predicted heart rate. The maximum workload was 1 metabolic equivalent. At rest there were no ST or T wave changes noted to suggest abnormal flow reserve at peak infusion nonspecific ST-T wave changes were noted with no meet the criteria for ischemia. No clinical angina was noted. The resting blood pressure was 170/90 mmHg with a final blood pressure of 164/80 6 m of mercury. Myocardial perfusion protocol. 11.7 mCi of technetium 99m sestamibi was injected at rest. 0.4 mg of regadenoson was infused per usual protocol peak infusion 32.8 mCi of flight readiness technician 90 9M sestamibi was injected stress images were obtained stress and rest images were reconstructed and compared in the short axis vertical long horizontal long axis. Gated images were also obtained Perfusion SPECT analysis: Review of the stress images demonstrate normal uptake of tracer noted in all areas of the myocardium. There is some GI attenuation artifact noted. No obvious reversibility is noted suggest ischemia. Gated SPECT analysis: The gated ejection fraction is noted to be 64%. Conclusion: Normal pharmacologic myocardial perfusion stress test. Preserved ejection fraction.
== END | disposition home or self-care (01) ==
LOC: CVS 06:16
PROVIDERS: Family Provider Family Medicine Geriatric Medicine; PCP Family Medicine Geriatric Medicine; Referring Provider Internal Medicine Cardiovascular Disease; Visit Provider Internal Medicine Cardiovascular Disease
DX: I25.10 Atherosclerotic heart disease of native coronary artery without angina pectoris (principal); E78.5 Hyperlipidemia, unspecified; I10 Essential (primary) hypertension
CPT/HCPCS: 78452; 93017; A9500; A4216; J2785

== ENCOUNTER → 2019-06-24 09:29 | Outpatient (CLI) | payer MEDICARE, BC, SELFPAY ==
[2019-01-05 11:03] VITALS: BMI 29.2
[2019-06-24 12:36] LABS: Absolute Lymphocyte Count 2.14 X10^3/uL (0.83-4.51); Absolute Neutrophil Count 3.3 X10^3/uL (2.0-7.7); Basophil# 0.06 X10^3/uL; Eosinophil# 0.08 X10^3/uL; Eosinophils% 1.3 % (0-5); Hematocrit 43.2 % (40-54); Hemoglobin 14.4 g/dL (13.0-16.5); Lymphocyte # 2.14 X10^3/ul (4.0); Lymphocyte % 35.2 % (19-41); Mean Corp Hgb Conc 33.3 g/dL (32-36); Mean Corpuscular Volume 99.1 fL (80-94); Mean Platelet Vol. 11.9 fl (6.2-12.0); Monocyte# 0.45 X10^3/uL; Monocyte% 7.4 % (0-10); NRBC Flagged by Analyzer 0 % (0-5); Neutrophil # 3.34 X10^3/uL (2.7-7.7); Neutrophil % 54.9 % (47-70); Platelet Count 171 K/mm3 (150-450); RBC Distribution Width CV 14.1 % (11.6-14.6); RBC Distribution Width SD 51.7 fl (35.1-43.9); Red Blood Count 4.36 M/mm3 (4.6-6.2); White Blood Count 6.1 K/mm3 (4.4-11.0)
[2019-06-24 12:39] LABS: Vitamin D,25 Hydroxy 21.2 ng/mL (29.95-100.01)
[2019-06-24 12:40] LABS: ALB/GLOB Ratio 1.1 RATIO (0.9-2.4); AST(SGOT) 22 U/L (15-37); Alanine Aminotransfer ALT/SGPT 23 U/L (16-61); Albumin, Serum 4.1 g/dL (3.2-5.0); Alkaline Phosphatase 52 U/L (45-117); Anion Gap 8 (5-15); BUN 22 mg/dL (7-18); BUN/Creat Ratio 19.8 RATIO (10-20); Calcium,Total 9.5 mg/dL (8.5-10.1); Chloride 107 mmol/L (98-107); Creatinine, Serum 1.11 mg/dL (0.70-1.30); EST Glomerular Filtration Rate 68 mL/min (>60); Est Glom Filt Rate - Afr Amer 82 mL/min (>60); Globulin 3.7 g/dL (2.2-4.2); Glucose 94 mg/dL (74-106); Protein, Total 7.8 g/dL (6.4-8.2); Sodium Level 139 mmol/L (136-145); Thyroid Stim Hormone (TSH) 0.69 uIU/mL (0.358-3.74)
== END ==
PROVIDERS: Family Provider Family Medicine Geriatric Medicine; PCP Family Medicine Geriatric Medicine; Visit Provider Family Medicine Geriatric Medicine
DX: E55.9 Vitamin D deficiency, unspecified (principal); F52.8 Other sexual dysfunction not due to a substance or known physiological condition; I10 Essential (primary) hypertension; M10.9 Gout, unspecified
CPT/HCPCS: 36415; 80053; 82306; 84403; 84443; 84550; 85025

== ENCOUNTER → 2019-07-01 10:17 | Outpatient (CLI) | payer MEDICARE, BC, SELFPAY ==
[2019-01-05 11:03] VITALS: BMI 29.2
[2019-07-01 13:10] LABS: AST(SGOT) 24 U/L (15-37); Alanine Aminotransfer ALT/SGPT 26 U/L (16-61); Alkaline Phosphatase 52 U/L (45-117); Bilirubin, Direct 0.28 mg/dL (0.00-0.30); Cholesterol 152 mg/dL (200); Globulin 3.5 g/dL (2.2-4.2); High Density Lipoprotein 50 mg/dL; Protein, Total 7.5 g/dL (6.4-8.2); Triglycerides 145 mg/dL; Very Low Density Lipoprotein 29 mg/dL (5-40)
== END ==
PROVIDERS: Family Provider Family Medicine Geriatric Medicine; PCP Family Medicine Geriatric Medicine; Referring Provider Nurse Practitioner Family; Visit Provider Nurse Practitioner Family
DX: E78.5 Hyperlipidemia, unspecified (principal)
CPT/HCPCS: 36415; 80061; 80076

== ENCOUNTER 2019-12-23 15:49 | Emergency (ER) | payer MEDICARE, BC, SELFPAY ==
[2019-07-06 07:30] VITALS: BMI 29.7
[2019-12-23] VITALS (7 sets, daily range): BP systolic 145–170; BP diastolic 88–107; PULSE 99–103; RESP 14–24; TEMP 37–38.3; O2SAT 97–99; BMI 29.9
--- NOTE | 2019-12-23 16:08 | CT_ITS ---
STUDY: CT BRAIN WITHOUT CONTRAST REASON FOR EXAM: Male, 79 years old. Fever. Confusion. RADIATION DOSAGE (If Supplied By Facility): CTDIvol = ( 44.99 ) mGy, DLP = ( 796.11 ) mGycm TECHNIQUE: Transaxial CT imaging of the brain was performed without administration of intravenous contrast material. Individualized dose optimization techniques were used for this CT. COMPARISON: November 21, 2018. FINDINGS: Normal soft tissue structures. Normal calvarium. Normal size ventricles and extra-axial spaces for the patient''s age. Normal white matter tracts of the cerebral hemispheres. Normal basal ganglia and thalami. Normal brainstem. Normal cerebellum. There is no intracranial hemorrhage. There are no findings of an acute ischemic infarction. Normal visualized paranasal sinuses. CT/Brain/Head without Contrast IMPRESSION: No acute intracranial or calvarial abnormality. There is no major interval change. Electronically Signed: Amador Kiran DO at 17:13 EDT Tel [phone], Service support ,
--- NOTE | 2019-12-23 16:09 | EKG12_ITS ---
Test Reason : SOB Blood Pressure : / mmHG Vent. Rate : 103 BPM Atrial Rate : 103 BPM P-R Int : 172 ms QRS Dur : 116 ms QT Int : 348 ms P-R-T Axes : 030 -80 -13 degrees QTc Int : 455 ms Sinus tachycardia Right bundle branch block Left anterior fascicular block Bifascicular block Septal infarct ,age undetermined Abnormal ECG Confirmed by YARELI MCCLENDON, SHAVONNE ([id number]), purchasing expeditor KOSTA PICHARDO ([id number]) on 12/28/2019 3:10:22 PM Referred By: JONATHON Confirmed By:SALVADOR DOWNS MD
--- NOTE | 2019-12-23 16:11 | ED.DCSUM_ITS ---
- ER Visit Summary Date of Service: 12/23/19 Chief Complaint: Fever History of Present Illness: The patient is a 79 M who presents with a fever that began yesterday. Patient states his fever was up to 101 at home last night. Patient states that improved with Tylenol. Patient denies any cough. Patient denies any chest pain or shortness of breath. Patient denies any headaches. Patient denies any urinary complaints. Patient was recently immunized with shingles vaccine 1 week ago. Patient had an episode of confusion today per his . EMS denies any confusion on their evaluation. Physical Examination: Vital signs are stable. Patient has a temperature of 100.9 here. Patient is in no acute distress. Oral mucosa is pink and moist. Neck is supple. Trachea is midline. There is no JVD. Heart was regular rate and rhythm. Lungs are clear and equal bilaterally. Abdomen is soft. Bowel sounds are normal. There is no tenderness. Patient is awake, alert, and oriented x3. Patient answers questions appropriately. Cranial nerves II through XII are intact. There are no focal motor or sensory deficits noted. Extremities are intact. There is no calf tenderness or edema. Test Results: CBC shows a slight leukocytosis of 11.6. Comprehensive metabolic profile showed a slightly elevated BUN of 29 but was otherwise within normal limits. Urinalysis does not show any evidence of urinary tract infection. Influenza swab was obtained and was negative. Portable chest x-ray was obtained. There is right basilar atelectasis which is stable compared to previous result. There is no acute change. CT scan of the brain was obtained. There is no acute intracranial abnormality. These were interpreted by the radiologist and reviewed by myself. Emergency Department Course and Treatment: Patient was given IV fluids here. Patient was given Tylenol. Patient was feeling better on reevaluation. Family requested a COVID-19 test be done. This was ordered and is pending. Patient was instructed to drink plenty of fluids. Patient was instructed to follow-up with his primary care physician in 5 to 7 days. Patient was instructed return if worse in any way. Patient understood and was agreeable with the plan. All questions were answered. Disposition: Discharge home Impression: 1. Febrile illness 2. Confusion episode, resolved This note was generated with [employer] dictation software. It may contain incorrect words, spelling, and punctuation that were not noted in review of the chart prior to signing ED Disposition - Plan for ED Patient: Disposition: Home or Assisted Living Diagnosis: Febrile illness, Episodic confusion Instructions: ED FUO Adult Referrals: Jones Madrigal Chi, MD [Primary Care Provider] - 3-5 Days
[2019-12-23 16:27] LABS: Absolute Lymphocyte Count 1.76 X10^3/uL (0.83-4.51); Absolute Neutrophil Count 9.1 X10^3/uL (2.0-7.7); Basophil# 0.04 X10^3/uL; Basophil% 0.3 % (0-1); Eosinophil# 0.01 X10^3/uL; Eosinophils% 0.1 % (0-5); Hemoglobin 14.4 g/dL (13.0-16.5); Lymphocyte # 1.76 X10^3/ul (4.0); Lymphocyte % 15.2 % (19-41); Mean Corp Hgb Conc 34.3 g/dL (32-36); Mean Corpuscular Hgb 33.7 pg (27.0-32.0); Mean Corpuscular Volume 98.4 fL (80-94); Mean Platelet Vol. 10.9 fl (6.2-12.0); Monocyte# 0.66 X10^3/uL; Monocyte% 5.7 % (0-10); NRBC Flagged by Analyzer 0 % (0-5); Neutrophil # 9.05 X10^3/uL (2.7-7.7); Neutrophil % 78.1 % (47-70); Platelet Count 220 K/mm3 (150-450); Red Blood Count 4.27 M/mm3 (4.6-6.2); White Blood Count 11.6 K/mm3 (4.4-11.0)
[2019-12-23 16:30] LABS: Partial Thromboplast Time 27.8 Seconds (24.1-36.2); Prothrombin Time (Protime)PT. 12.8 SECONDS (11.7-14.9)
[2019-12-23 16:37] LABS: Bacteria 0 SEEN /hpf (None Seen); Mucous, Urine 0 SEEN /hpf (<or=2+); Red Blood Cells-Urine 0 SEEN /hpf (0-5); Squamous Epithelial Cells - UA 0 SEEN /hpf (0-5); White Blood Cells 0 SEEN /hpf (0-5)
[2019-12-23 16:38] LABS: AST(SGOT) 19 U/L (15-37); Alanine Aminotransfer ALT/SGPT 26 U/L (16-61); Alkaline Phosphatase 70 U/L (45-117); Anion Gap 9 (5-15); BUN 29 mg/dL (7-18); BUN/Creat Ratio 25.2 RATIO (10-20); Calcium,Total 9.4 mg/dL (8.5-10.1); Chloride 102 mmol/L (98-107); Creatinine, Serum 1.15 mg/dL (0.70-1.30); EST Glomerular Filtration Rate 65 mL/min (>60); Est Glom Filt Rate - Afr Amer 79 mL/min (>60); Estimated Creatinine Clearance 46.05 ml/min; Globulin 3.9 g/dL (2.2-4.2); Glucose 118 mg/dL (74-106); Potassium 4.1 mmol/L (3.5-5.1); Protein, Total 7.9 g/dL (6.4-8.2); Sodium Level 136 mmol/L (136-145)
[2019-12-23 16:40] LABS: Lactic Acid 1.5 mmol/L (0.4-1.9)
[2019-12-23 16:41] LABS: Color, Urine Yellow (Yellow); Glucose, Dipstick Normal (Normal); Ketone-Dipstick Negative (Negative); Leukocyte Esterase-Dipstick Negative /ul (Negative); Nitrite-Dipstick Negative (Negative); Occult Blood-Urine Negative /ul (Negative); Protein-Dipstick Negative (Negative); Urine Bilirubin Dipstick Negative (Negative); Urine Clarity Clear (Clear); Urine Urobilinogen Normal (Normal)
[2019-12-23] MEDS: Acetaminophen 500 MG Tablet 1000 MG PO (16:50)
[2019-12-23] MEDS: 0.9% Normal Saline 1,000 ML 999 ML IV (16:50)
--- NOTE | 2019-12-23 16:57 | RAD_ITS ---
STUDY: X-RAY CHEST REASON FOR EXAM: Male, 79 years old. Fever and confusion. Shingles sac seen one week ago. History of reaction to last shingles vaccine. History of hypertension and coronary artery calcifications. TECHNIQUE: Single AP portable view of the chest. COMPARISON: February 01, 2013 FINDINGS: The lungs are mildly hypoexpanded. There is no focal mass or infiltrate. There is minimal atelectasis at the right lung base. There is no demonstrated pleural abnormality. Normal size heart. Normal mediastinum and aaron. Normal visualized pulmonary arteries. Normal visualized aortic arch and descending thoracic aorta. No visualized osseous changes. There is no demonstrated abnormality of the visualized soft tissue structures of the upper abdomen. RAD/Chest 1 View (Portable) IMPRESSION: Diminished inspiratory effort with questionable mild right basilar atelectasis. The study is otherwise unchanged. Electronically Signed: Amador Kiran DO at 17:14 EDT Tel [phone], Service support ,
--- NOTE | 2019-12-23 17:53 | ED.RN ---
DAUGHTER CALL [place]IN AND DEMANDS PT BE TESTED FOR COVID. SHE REPORTS SHE IS IN [place] AND DOESN'T UNDERSTAND WHY HE CANNOT JUST BE TESTED BECAUSE EVERYONE THERE GETS TESTED EVEN WITHOUT SYMPTOMS. EDUCATION PROVIDED TO DAUGHTER. DAUGHTER STATES WELL WE HAVE A LOT OF DOCTORS IN OUT FAMILY THAT ARE HIGHLY EDUCATED AND I DON'T WANT TO START SOMETHING WITH [facility] BUT I WILL IF I HAVE TO. INFORMATION ABOUT PT CARE PROVIDED. WILL UPDATE WITH TESTING.
--- NOTE | 2019-12-26 18:11 | ED.RN ---
POSITIVE URINE CULTURE REPORTED BY LAB, RESULTS REVIEWED BY DR. LANE AND DR. ARORA, INSTRUCTED TO CALL PATIENT FOR FOLLOW UP. PATIENT STATES THAT HE IS FEELING BETTER AND IS WITHOUT ISSUE. HE HAS AN APPOINTMENT TO FOLLOW UP WITH DR. RIZO ON 12/29. HE IS MADE AWARE THAT IF HE DEVELOPS ANY NEW OR WORSENING SYMPTOMS TO RETURN TO ED.
== END 2019-12-23 18:57 | disposition home or self-care (01) ==
PROVIDERS: Emergency Provider Emergency Medicine; PCP Family Medicine Geriatric Medicine
DX: R50.9 Fever, unspecified (principal); R41.0 Disorientation, unspecified; I25.10 Atherosclerotic heart disease of native coronary artery without angina pectoris
CPT/HCPCS: 70450; 71045; 80053; 81001; 83605; 85025; 85610; 85730; 87040; 87077; 87086; 87088; 87186; 87635; 87804; 93005; 96360; 99285; G2023; J7030; U0002; U0004

== ENCOUNTER → 2019-12-30 11:05 | Outpatient (CLI) | payer MEDICARE, BC, SELFPAY ==
[2019-12-23 15:50] VITALS: BMI 29.9
[2019-12-30 12:45] LABS: Absolute Lymphocyte Count 2.08 X10^3/uL (0.83-4.51); Absolute Neutrophil Count 4.8 X10^3/uL (2.0-7.7); Basophil# 0.03 X10^3/uL; Basophil% 0.4 % (0-1); Eosinophil# 0.05 X10^3/uL; Eosinophils% 0.7 % (0-5); Hematocrit 40.9 % (40-54); Hemoglobin 13.5 g/dL (13.0-16.5); Lymphocyte # 2.08 X10^3/ul (4.0); Lymphocyte % 27.5 % (19-41); Mean Corpuscular Hgb 32.8 pg (27.0-32.0); Mean Corpuscular Volume 99.5 fL (80-94); Mean Platelet Vol. 11.1 fl (6.2-12.0); Monocyte# 0.63 X10^3/uL; Monocyte% 8.3 % (0-10); NRBC Flagged by Analyzer 0 % (0-5); Neutrophil # 4.76 X10^3/uL (2.7-7.7); Neutrophil % 62.8 % (47-70); Platelet Count 229 K/mm3 (150-450); RBC Distribution Width CV 13.4 % (11.6-14.6); RBC Distribution Width SD 49.5 fl (35.1-43.9); Red Blood Count 4.11 M/mm3 (4.6-6.2); White Blood Count 7.6 K/mm3 (4.4-11.0)
[2019-12-30 13:03] LABS: Vitamin D,25 Hydroxy 26.5 ng/mL
[2019-12-30 13:08] LABS: ALB/GLOB Ratio 1.1 RATIO (0.9-2.4); AST(SGOT) 22 U/L (15-37); Alanine Aminotransfer ALT/SGPT 33 U/L (16-61); Alkaline Phosphatase 55 U/L (45-117); Anion Gap 9 (5-15); BUN 24 mg/dL (7-18); BUN/Creat Ratio 18.6 RATIO (10-20); Calcium,Total 9.4 mg/dL (8.5-10.1); Chloride 103 mmol/L (98-107); Creatinine, Serum 1.29 mg/dL (0.70-1.30); EST Glomerular Filtration Rate 57 mL/min (>60); Est Glom Filt Rate - Afr Amer 69 mL/min (>60); Globulin 3.6 g/dL (2.2-4.2); Glucose 110 mg/dL (74-106); Potassium 4.2 mmol/L (3.5-5.1); Protein, Total 7.6 g/dL (6.4-8.2); Sodium Level 136 mmol/L (136-145); Thyroid Stim Hormone (TSH) 0.69 uIU/mL (0.358-3.74); Uric Acid 5.3 mg/dL (3.5-7.2)
== END ==
PROVIDERS: PCP Family Medicine Geriatric Medicine; Visit Provider Family Medicine Geriatric Medicine
DX: I10 Essential (primary) hypertension (principal); E55.9 Vitamin D deficiency, unspecified; M10.9 Gout, unspecified
CPT/HCPCS: 36415; 80053; 82306; 84403; 84443; 84550; 85025

== ENCOUNTER → 2020-02-14 09:18 | Outpatient (CLI) | payer MEDICARE, BC, SELFPAY ==
[2019-12-23 15:50] VITALS: BMI 29.9
[2020-02-14 13:30] LABS: AST(SGOT) 22 U/L (15-37); Alanine Aminotransfer ALT/SGPT 20 U/L (16-61); Albumin, Serum 3.8 g/dL (3.2-5.0); Alkaline Phosphatase 52 U/L (45-117); Bilirubin, Direct 0.28 mg/dL (0.00-0.30); Cholesterol 175 mg/dL (200); Globulin 3.3 g/dL (2.2-4.2); High Density Lipoprotein 54 mg/dL; Protein, Total 7.1 g/dL (6.4-8.2); Triglycerides 151 mg/dL; Very Low Density Lipoprotein 30 mg/dL (5-40)
== END ==
PROVIDERS: PCP Family Medicine Geriatric Medicine; Referring Provider Nurse Practitioner Family; Visit Provider Nurse Practitioner Family
DX: E78.00 Pure hypercholesterolemia, unspecified (principal)
CPT/HCPCS: 36415; 80061; 80076

== ENCOUNTER → 2020-04-05 12:20 | Outpatient (CLI) | payer MEDICARE, BC, SELFPAY ==
[2020-02-17 09:54] VITALS: BMI 29.4
[2020-04-05 13:26] LABS: Absolute Lymphocyte Count 2.65 X10^3/uL (0.83-4.51); Absolute Neutrophil Count 4.8 X10^3/uL (2.0-7.7); Basophil# 0.03 X10^3/uL; Basophil% 0.4 % (0-1); Eosinophil# 0.12 X10^3/uL; Eosinophils% 1.5 % (0-5); Hematocrit 42.4 % (40-54); Hemoglobin 14.3 g/dL (13.0-16.5); Lymphocyte # 2.65 X10^3/ul (4.0); Lymphocyte % 32.1 % (19-41); Mean Corp Hgb Conc 33.7 g/dL (32-36); Mean Corpuscular Hgb 33.3 pg (27.0-32.0); Mean Corpuscular Volume 98.8 fL (80-94); Mean Platelet Vol. 11.3 fl (6.2-12.0); Monocyte# 0.62 X10^3/uL; Monocyte% 7.5 % (0-10); NRBC Flagged by Analyzer 0 % (0-5); Neutrophil % 58.1 % (47-70); Platelet Count 218 K/mm3 (150-450); RBC Distribution Width SD 50.9 fl (35.1-43.9); Red Blood Count 4.29 M/mm3 (4.6-6.2); White Blood Count 8.3 K/mm3 (4.4-11.0)
[2020-04-05 13:52] LABS: Vitamin D,25 Hydroxy 32.8 ng/mL
[2020-04-05 14:01] LABS: ALB/GLOB Ratio 1.1 RATIO (0.9-2.4); AST(SGOT) 28 U/L (15-37); Alanine Aminotransfer ALT/SGPT 32 U/L (16-61); Alkaline Phosphatase 60 U/L (45-117); Anion Gap 6 (5-15); BUN 17 mg/dL (7-18); BUN/Creat Ratio 18.5 RATIO (10-20); Calcium,Total 9.4 mg/dL (8.5-10.1); Chloride 106 mmol/L (98-107); Creatinine, Serum 0.92 mg/dL (0.70-1.30); EST Glomerular Filtration Rate 85 mL/min (>60); Est Glom Filt Rate - Afr Amer 102 mL/min (>60); Globulin 3.7 g/dL (2.2-4.2); Glucose 97 mg/dL (74-106); Potassium 3.7 mmol/L (3.5-5.1); Protein, Total 7.7 g/dL (6.4-8.2); Sodium Level 138 mmol/L (136-145); Uric Acid 5.2 mg/dL (3.5-7.2)
== END ==
PROVIDERS: PCP Family Medicine Geriatric Medicine; Referring Provider Family Medicine Geriatric Medicine; Visit Provider Family Medicine Geriatric Medicine
DX: E55.9 Vitamin D deficiency, unspecified (principal); F52.8 Other sexual dysfunction not due to a substance or known physiological condition; I10 Essential (primary) hypertension; M10.9 Gout, unspecified
CPT/HCPCS: 36415; 80053; 82306; 84403; 84443; 84550; 85025

== ENCOUNTER → 2020-07-12 10:01 | Outpatient (CLI) | payer MEDICARE, BC, SELFPAY ==
[2020-02-17 09:54] VITALS: BMI 29.4
[2020-07-12 12:37] LABS: Absolute Lymphocyte Count 2.61 X10^3/uL (0.83-4.51); Absolute Neutrophil Count 3.7 X10^3/uL (2.0-7.7); Basophil# 0.05 X10^3/uL; Basophil% 0.7 % (0-1); Eosinophil# 0.11 X10^3/uL; Eosinophils% 1.6 % (0-5); Hematocrit 41.6 % (40-54); Hemoglobin 13.5 g/dL (13.0-16.5); Lymphocyte # 2.61 X10^3/ul (4.0); Lymphocyte % 37.3 % (19-41); Mean Corp Hgb Conc 32.5 g/dL (32-36); Mean Corpuscular Hgb 31.8 pg (27.0-32.0); Mean Corpuscular Volume 97.9 fL (80-94); Mean Platelet Vol. 11.3 fl (6.2-12.0); Monocyte# 0.55 X10^3/uL; Monocyte% 7.9 % (0-10); NRBC Flagged by Analyzer 0 % (0-5); Neutrophil # 3.66 X10^3/uL (2.7-7.7); Neutrophil % 52.2 % (47-70); Platelet Count 198 K/mm3 (150-450); RBC Distribution Width CV 14.8 % (11.6-14.6); RBC Distribution Width SD 53.5 fl (35.1-43.9); Red Blood Count 4.25 M/mm3 (4.6-6.2)
[2020-07-12 12:54] LABS: ALB/GLOB Ratio 1.1 RATIO (0.9-2.4); AST(SGOT) 24 U/L (15-37); Alanine Aminotransfer ALT/SGPT 28 U/L (16-61); Alkaline Phosphatase 65 U/L (45-117); Anion Gap 6 (5-15); BUN 20 mg/dL (7-18); BUN/Creat Ratio 18.5 RATIO (10-20); Calcium,Total 9.2 mg/dL (8.5-10.1); Chloride 104 mmol/L (98-107); Creatinine, Serum 1.08 mg/dL (0.70-1.30); EST Glomerular Filtration Rate 70 mL/min (>60); Est Glom Filt Rate - Afr Amer 85 mL/min (>60); Globulin 3.8 g/dL (2.2-4.2); Glucose 92 mg/dL (74-106); Potassium 3.7 mmol/L (3.5-5.1); Protein, Total 7.8 g/dL (6.4-8.2); Sodium Level 137 mmol/L (136-145); Thyroid Stim Hormone (TSH) 0.84 uIU/mL (0.358-3.74); Uric Acid 5.1 mg/dL (3.5-7.2)
== END ==
PROVIDERS: PCP Family Medicine Geriatric Medicine; Visit Provider Family Medicine Geriatric Medicine
DX: E55.9 Vitamin D deficiency, unspecified (principal); F52.8 Other sexual dysfunction not due to a substance or known physiological condition; M10.9 Gout, unspecified; R53.83 Other fatigue
CPT/HCPCS: 36415; 80053; 82306; 84403; 84443; 84550; 85025

== ENCOUNTER → 2020-09-27 08:21 | Outpatient (CLI) | payer MEDICARE, BC, SELFPAY ==
[2020-02-17 09:54] VITALS: BMI 29.4
[2020-09-27 10:47] LABS: AST(SGOT) 27 U/L (15-37); Alanine Aminotransfer ALT/SGPT 28 U/L (16-61); Albumin, Serum 3.7 g/dL (3.2-5.0); Alkaline Phosphatase 65 U/L (45-117); Bilirubin, Direct 0.09 mg/dL (0.00-0.30); Cholesterol 170 mg/dL (200); Globulin 3.6 g/dL (2.2-4.2); High Density Lipoprotein 50 mg/dL; Protein, Total 7.3 g/dL (6.4-8.2); Triglycerides 132 mg/dL; Very Low Density Lipoprotein 26 mg/dL (5-40)
== END ==
PROVIDERS: PCP Family Medicine Geriatric Medicine; Referring Provider Internal Medicine Cardiovascular Disease; Visit Provider Internal Medicine Cardiovascular Disease
DX: E78.00 Pure hypercholesterolemia, unspecified (principal)
CPT/HCPCS: 36415; 80061; 80076

== ENCOUNTER → 2020-10-11 11:17 | Outpatient (CLI) | payer MEDICARE, BC, SELFPAY ==
[2020-09-29 12:47] VITALS: BMI 31.1
[2020-10-11 12:21] LABS: Absolute Lymphocyte Count 2.71 X10^3/uL (0.83-4.51); Basophil# 0.07 X10^3/uL; Basophil% 0.9 % (0-1); Eosinophil# 0.14 X10^3/uL; Eosinophils% 1.9 % (0-5); Hematocrit 44.7 % (40-54); Hemoglobin 14.4 g/dL (13.0-16.5); Lymphocyte # 2.71 X10^3/ul (4.0); Lymphocyte % 36.1 % (19-41); Mean Corp Hgb Conc 32.2 g/dL (32-36); Mean Corpuscular Hgb 31.5 pg (27.0-32.0); Mean Corpuscular Volume 97.8 fL (80-94); Mean Platelet Vol. 12.1 fl (6.2-12.0); Monocyte# 0.59 X10^3/uL; Monocyte% 7.9 % (0-10); NRBC Flagged by Analyzer 0 % (0-5); Neutrophil # 3.98 X10^3/uL (2.7-7.7); Neutrophil % 52.9 % (47-70); Platelet Count 205 K/mm3 (150-450); RBC Distribution Width CV 13.8 % (11.6-14.6); RBC Distribution Width SD 49.6 fl (35.1-43.9); Red Blood Count 4.57 M/mm3 (4.6-6.2); White Blood Count 7.5 K/mm3 (4.4-11.0)
[2020-10-11 12:35] LABS: Vitamin D,25 Hydroxy 25.4 ng/mL
[2020-10-11 12:47] LABS: AST(SGOT) 25 U/L (15-37); Alanine Aminotransfer ALT/SGPT 31 U/L (16-61); Albumin, Serum 4.1 g/dL (3.2-5.0); Alkaline Phosphatase 70 U/L (45-117); Anion Gap 5 (5-15); BUN 22 mg/dL (7-18); BUN/Creat Ratio 20.8 RATIO (10-20); Calcium,Total 9.6 mg/dL (8.5-10.1); Chloride 106 mmol/L (98-107); Creatinine, Serum 1.06 mg/dL (0.70-1.30); EST Glomerular Filtration Rate 72 mL/min (>60); Est Glom Filt Rate - Afr Amer 87 mL/min (>60); Globulin 4.1 g/dL (2.2-4.2); Glucose 101 mg/dL (74-106); Potassium 3.8 mmol/L (3.5-5.1); Protein, Total 8.2 g/dL (6.4-8.2); Sodium Level 139 mmol/L (136-145); Thyroid Stim Hormone (TSH) 0.73 uIU/mL (0.358-3.74); Uric Acid 5.8 mg/dL (3.5-7.2)
== END ==
PROVIDERS: PCP Family Medicine Geriatric Medicine; Visit Provider Family Medicine Geriatric Medicine
DX: E55.9 Vitamin D deficiency, unspecified (principal); F52.8 Other sexual dysfunction not due to a substance or known physiological condition; I10 Essential (primary) hypertension; M10.9 Gout, unspecified
CPT/HCPCS: 36415; 80053; 82306; 84403; 84443; 84550; 85025

== ENCOUNTER → 2021-02-15 10:45 | Outpatient (CLI) | payer MEDICARE, BC, SELFPAY ==
[2020-09-29 12:47] VITALS: BMI 31.1
[2021-02-15 12:25] LABS: Absolute Lymphocyte Count 2.78 X10^3/uL (0.83-4.51); Absolute Neutrophil Count 4.5 X10^3/uL (2.0-7.7); Basophil# 0.07 X10^3/uL; Basophil% 0.9 % (0-1); Eosinophil# 0.07 X10^3/uL; Eosinophils% 0.9 % (0-5); Hematocrit 40.5 % (40-54); Hemoglobin 14.1 g/dL (13.0-16.5); Lymphocyte # 2.78 X10^3/ul (0.83-4.51); Lymphocyte % 33.8 % (19-41); Mean Corp Hgb Conc 34.8 g/dL (32-36); Mean Corpuscular Hgb 33.3 pg (27.0-32.0); Mean Corpuscular Volume 95.5 fL (80-94); Mean Platelet Vol. 11.2 fl (6.2-12.0); Monocyte# 0.76 X10^3/uL; Monocyte% 9.2 % (0-10); NRBC Flagged by Analyzer 0 % (0-5); Neutrophil # 4.52 X10^3/uL (2.7-7.7); Platelet Count 203 K/mm3 (150-450); RBC Distribution Width CV 14.4 % (11.6-14.6); RBC Distribution Width SD 50.8 fl (35.1-43.9); Red Blood Count 4.24 M/mm3 (4.6-6.2); White Blood Count 8.2 K/mm3 (4.4-11.0)
[2021-02-15 12:45] LABS: Albumin, Serum 3.9 g/dL (3.2-5.0); BUN 21 mg/dL (7-18); BUN/Creat Ratio 16.9 RATIO (10-20); Creatinine, Serum 1.24 mg/dL (0.70-1.30); EST Glomerular Filtration Rate 60 mL/min (>60); Est Glom Filt Rate - Afr Amer 72 mL/min (>60); Glucose 104 mg/dL (74-106); Protein, Total 7.6 g/dL (6.4-8.2); Vitamin D,25 Hydroxy 23.6 ng/mL
[2021-02-15 12:46] LABS: ALB/GLOB Ratio 1.1 RATIO (0.9-2.4); AST(SGOT) 25 U/L (15-37); Alanine Aminotransfer ALT/SGPT 26 U/L (16-61); Alkaline Phosphatase 59 U/L (45-117); Anion Gap 9 (5-15); Calcium,Total 9.3 mg/dL (8.5-10.1); Chloride 101 mmol/L (98-107); Globulin 3.7 g/dL (2.2-4.2); Potassium 3.7 mmol/L (3.5-5.1); Sodium Level 137 mmol/L (136-145); Thyroid Stim Hormone (TSH) 0.83 uIU/mL (0.358-3.74)
== END ==
PROVIDERS: PCP Family Medicine Geriatric Medicine; Visit Provider Family Medicine Geriatric Medicine
DX: E55.9 Vitamin D deficiency, unspecified (principal); R53.83 Other fatigue; M10.9 Gout, unspecified; F52.8 Other sexual dysfunction not due to a substance or known physiological condition
CPT/HCPCS: 36415; 80053; 82306; 84403; 84443; 84550; 85025

== ENCOUNTER → 2021-03-30 07:27 | Outpatient (CLI) | payer MEDICARE, BC, SELFPAY ==
[2021-03-30 10:28] LABS: AST(SGOT) 26 U/L (15-37); Alanine Aminotransfer ALT/SGPT 31 U/L (16-61); Albumin, Serum 4.3 g/dL (3.2-5.0); Alkaline Phosphatase 58 U/L (45-117); Bilirubin, Direct 0.22 mg/dL (0.00-0.30); Cholesterol 188 mg/dL (200); Globulin 3.8 g/dL (2.2-4.2); High Density Lipoprotein 59 mg/dL; Protein, Total 8.1 g/dL (6.4-8.2); Triglycerides 127 mg/dL; Very Low Density Lipoprotein 25 mg/dL (5-40)
== END ==
PROVIDERS: PCP Family Medicine Geriatric Medicine; Referring Provider Internal Medicine Cardiovascular Disease; Visit Provider Internal Medicine Cardiovascular Disease
DX: E78.00 Pure hypercholesterolemia, unspecified (principal)
CPT/HCPCS: 36415; 80061; 80076

== ENCOUNTER → 2021-04-25 07:12 | Outpatient (CLI) | payer MEDICARE, BC, SELFPAY ==
--- NOTE | 2021-04-25 07:14 | ECHOD_ITS ---
Reason For Study: CAD Procedure This was a 2D Doppler, Color Flow transthoracic echocardiogram. Exam performed in department. Left Ventricle Normal LV size. Left ventricular systolic function is normal. The estimated ejection fraction is 60 %. Stage 1 diastolic dysfunction. No regional wall motion abnormalities noted. Right Ventricle Normal RV size. Normal systolic function. Atria Normal left atrium. Normal right atrium. Mitral Valve Normal mitral valve. Tricuspid Valve Normal tricuspid valve. Mild tricuspid valve insufficiency. Pulmonary artery systolic pressure is 24 mmHg. Aortic Valve Trisinus/trileaflet aortic valve. Mild focal aortic valve calcification. Mild aortic stenosis. Pulmonic Valve Normal pulmonic valve. Great Vessels Calcified aortic root. Mildly dilated aortic root. The pulmonary artery is normal size. Normal inferior vena cava. Pericardium/Pleural No pericardial effusion. MMode/2D Measurements & Calculations LVIDd: 4.1 cm IVSd: 1.00 cm LVOT diam: 1.8 cm LVIDs: 2.7 cm LVPWd: 0.97 cm LVOT area: 2.5 cm2 RVDd: 3.3 cm FS: 33.8 % Ao root diam: 3.8 cm LAV(MOD-bp): 51.4 ml LVAd ap4: 26.4 cm2 LAV(MOD-bp) Indexed: 27.2 ml/m2 LVLd ap4: 7.9 cm LAV(MOD-sp2): 53.0 ml EDV(MOD-sp4): 71.2 ml LAV(MOD-sp4): 39.5 ml EDV(sp4-el): 74.8 ml LVAs ap4: 14.3 cm2 LVLs ap4: 6.3 cm ESV(MOD-sp4): 26.5 ml ESV(sp4-el): 27.7 ml EF(MOD-sp4): 62.8 % EF(sp4-el): 63.0 % LVAd ap2: 22.6 cm2 SV(MOD-sp4): 44.7 ml SV(MOD-sp2): 31.3 ml LVLd ap2: 7.9 cm EDV(MOD-sp2): 53.7 ml EDV(sp2-el): 54.9 ml LVAs ap2: 12.3 cm2 LVLs ap2: 6.3 cm ESV(MOD-sp2): 22.4 ml ESV(sp2-el): 20.6 ml EF(MOD-sp2): 58.3 % SV(sp4-el): 47.1 ml LA dimension(2D): 3.9 cm LA A4 area: 15.8 cm2 RA A4 area: 10.0 cm2 Time Measurements MV dec time: 0.36 sec Doppler Measurements & Calculations MV E max suleman: 59.4 cm/sec Lat Peak E' Suleman: 6.8 cm/sec Med Peak E' Suleman: 5.2 cm/sec MV A max suleman: 113.9 cm/sec E/E' lat: 8.8 E/E' med: 11.4 MV E/A: 0.52 Ao V2 max: 164.6 cm/sec LV V1 max: 91.7 cm/sec SV(LVOT): 53.1 ml Ao max P.9 mmHg LV V1 max P.4 mmHg Ao V2 mean: 106.2 cm/sec LV V1 mean P.7 mmHg Ao mean P.1 mmHg LV V1 mean: 62.3 cm/sec Ao V2 VTI: 33.4 cm LV V1 VTI: 21.0 cm SUKUMAR(I,D): 1.6 cm2 SUKUMAR(V,D): 1.4 cm2 TR max suleman: 235.8 cm/sec TR max P.9 mmHg ECHO/Echo Complete Interpretation Summary Normal LV size. Left ventricular systolic function is normal. The estimated ejection fraction is 60 %. Calcified aortic root. Mildly dilated aortic root. Mild aortic stenosis. Stage 1 diastolic dysfunction. Ordering Physician: Andrei Henry Referring Physician: SRIRAM RIZO Performed By: Henna Fajardo, ARACELICS, RVT
--- NOTE | 2021-04-25 12:55 | STRESSREP_ITS ---
Stress Test Report Pharmacologic myocardial perfusion stress test. 81-year-old man with a history of coronary artery disease. Stress protocol: Resting EKG demonstrates sinus bradycardia with a rate of 58 bpm right bundle branch block is noted. Resting blood pressure is 164/88 mmHg. 0.4 mg of regadenoson was infused per usual protocol followed by rapid venous and flush injection continuous EKG monitoring was performed. The maximum heart rate attained was 88 bpm which was 62% of max infected heart rate the maximum workload was 1 metabolic equivalent. At rest there were no ST or T wave changes noted to suggest ischemia and at peak infusion nonspecific ST changes were noted with did not meet the criteria for ischemia. No clinical angina was noted the test was terminated due to completion of the test. The final blood pressure is 150/88 mmHg. Myocardial perfusion protocol. 10.0 mCi of technetium 99m sestamibi was injected at rest. 0.4 mg of rega denoson was infused per usual protocol. At peak infusion 34.0 mCi of technetium 99m sestamibi was injected stress images were obtained and stress and rest images were reconstructed and compared in the short axis vertical long and horizontal long axis. Gated images were also obtained. Perfusion SPECT analysis: Review of the stress images demonstrate normal uptake of tracer noted in all areas of the myocardium. The resting images similarly demonstrated normal uptake of tracer noted in all areas of the myocardium. No areas of reversibility are noted to suggest ischemia and no previous infarct is noted. Gated SPECT analysis: The gated ejection fraction is 72%. Conclusion: Normal pharmacologic myocardial perfusion stress test. Preserved ejection fraction.
== END ==
PROVIDERS: PCP Family Medicine Geriatric Medicine; Referring Provider Internal Medicine Cardiovascular Disease; Visit Provider Internal Medicine Cardiovascular Disease
DX: I25.10 Atherosclerotic heart disease of native coronary artery without angina pectoris (principal)
CPT/HCPCS: 78452; 93017; 93306; A9500; A4216; J2785

== ENCOUNTER 2021-08-29 10:42 | Outpatient (CLI) | payer MEDICARE, BC, SELFPAY ==
[2021-08-29 12:03] LABS: Absolute Lymphocyte Count 2.19 X10^3/uL (0.83-4.51); Absolute Neutrophil Count 3.7 X10^3/uL (2.0-7.7); Basophil# 0.05 X10^3/uL; Basophil% 0.8 % (0-1); Eosinophil# 0.05 X10^3/uL; Eosinophils% 0.8 % (0-5); Hemoglobin 13.9 g/dL (13.0-16.5); Lymphocyte # 2.19 X10^3/ul (0.83-4.51); Lymphocyte % 32.9 % (19-41); Mean Corp Hgb Conc 33.9 g/dL (32-36); Mean Corpuscular Hgb 32.3 pg (27.0-32.0); Mean Corpuscular Volume 95.3 fL (80-94); Mean Platelet Vol. 11.7 fl (6.2-12.0); NRBC Flagged by Analyzer 0 % (0-5); Neutrophil # 3.74 X10^3/uL (2.7-7.7); Platelet Count 200 K/mm3 (150-450); RBC Distribution Width CV 13.9 % (11.6-14.6); RBC Distribution Width SD 48.7 fl (35.1-43.9); White Blood Count 6.7 K/mm3 (4.4-11.0)
[2021-08-29 12:41] LABS: Vitamin D,25 Hydroxy 31.2 ng/mL
[2021-08-29 12:48] LABS: AST(SGOT) 23 U/L (15-37); Alanine Aminotransfer ALT/SGPT 28 U/L (16-61); Albumin, Serum 3.9 g/dL (3.2-5.0); Alkaline Phosphatase 49 U/L (45-117); Anion Gap 5 (5-15); BUN 22 mg/dL (7-18); BUN/Creat Ratio 22.7 RATIO (10-20); Calcium,Total 9.3 mg/dL (8.5-10.1); Chloride 103 mmol/L (98-107); Creatinine, Serum 0.97 mg/dL (0.70-1.30); EST Glomerular Filtration Rate 79 mL/min (>60); Est Glom Filt Rate - Afr Amer 96 mL/min (>60); Globulin 3.9 g/dL (2.2-4.2); Glucose 94 mg/dL (74-106); Potassium 3.7 mmol/L (3.5-5.1); Protein, Total 7.8 g/dL (6.4-8.2); Sodium Level 136 mmol/L (136-145); Thyroid Stim Hormone (TSH) 0.73 uIU/mL (0.358-3.74); Uric Acid 5.3 mg/dL (3.5-7.2)
== END 2021-08-29 23:59 | disposition short-term general hospital (02) ==
LOC: POLAB3 10:43
PROVIDERS: PCP Family Medicine Geriatric Medicine; Visit Provider Family Medicine Geriatric Medicine
DX: E55.9 Vitamin D deficiency, unspecified (principal); F52.8 Other sexual dysfunction not due to a substance or known physiological condition; I10 Essential (primary) hypertension; M10.9 Gout, unspecified
CPT/HCPCS: 36415; 80053; 82306; 84403; 84443; 84550; 85025

== ENCOUNTER 2021-10-08 07:59 | Outpatient (CLI) | payer MEDICARE, BC, SELFPAY ==
[2021-10-08 10:19] LABS: AST(SGOT) 24 U/L (15-37); Alanine Aminotransfer ALT/SGPT 24 U/L (16-61); Albumin, Serum 3.9 g/dL (3.2-5.0); Alkaline Phosphatase 52 U/L (45-117); Bilirubin, Direct 0.25 mg/dL (0.00-0.30); Cholesterol 166 mg/dL (200); Globulin 3.6 g/dL (2.2-4.2); High Density Lipoprotein 59 mg/dL; Protein, Total 7.5 g/dL (6.4-8.2); Triglycerides 112 mg/dL; Very Low Density Lipoprotein 22 mg/dL (5-40)
== END 2021-10-08 23:59 | disposition home or self-care (01) ==
LOC: MTLAB 08:00
PROVIDERS: PCP Family Medicine Geriatric Medicine; Referring Provider Internal Medicine Cardiovascular Disease; Visit Provider Internal Medicine Cardiovascular Disease
DX: E78.00 Pure hypercholesterolemia, unspecified (principal)
CPT/HCPCS: 36415; 80061; 80076

== ENCOUNTER → 2022-02-18 | Outpatient (CLI) | payer MEDICARE, BC, SELFPAY ==
[2022-02-18 12:28] LABS: Absolute Lymphocyte Count 2.29 X10^3/uL (0.83-4.51); Absolute Neutrophil Count 3.2 X10^3/uL (2.0-7.7); Basophil# 0.07 X10^3/uL; Basophil% 1.1 % (0-1); Eosinophil# 0.11 X10^3/uL; Eosinophils% 1.7 % (0-5); Hematocrit 39.3 % (40-54); Hemoglobin 13.7 g/dL (13.0-16.5); Lymphocyte # 2.29 X10^3/ul (0.83-4.51); Lymphocyte % 35.8 % (19-41); Mean Corp Hgb Conc 34.9 g/dL (32-36); Mean Corpuscular Hgb 33.6 pg (27.0-32.0); Mean Corpuscular Volume 96.3 fL (80-94); Mean Platelet Vol. 11.8 fl (6.2-12.0); Monocyte# 0.71 X10^3/uL; Monocyte% 11.1 % (0-10); NRBC Flagged by Analyzer 0 % (0-5); Neutrophil % 50.1 % (47-70); Platelet Count 204 K/mm3 (150-450); RBC Distribution Width CV 14.2 % (11.6-14.6); RBC Distribution Width SD 49.8 fl (35.1-43.9); Red Blood Count 4.08 M/mm3 (4.6-6.2); White Blood Count 6.4 K/mm3 (4.4-11.0)
[2022-02-18 12:59] LABS: ALB/GLOB Ratio 1.1 RATIO (0.9-2.4); AST(SGOT) 29 U/L (15-37); Alanine Aminotransfer ALT/SGPT 28 U/L (16-61); Albumin, Serum 4.1 g/dL (3.2-5.0); Alkaline Phosphatase 51 U/L (45-117); Anion Gap 11 (5-15); BUN 15 mg/dL (7-18); BUN/Creat Ratio 15.5 RATIO (10-20); Calcium,Total 9.5 mg/dL (8.5-10.1); Chloride 99 mmol/L (98-107); Creatinine, Serum 0.97 mg/dL (0.70-1.30); EST Glomerular Filtration Rate 79 mL/min (>60); Est Glom Filt Rate - Afr Amer 96 mL/min (>60); Globulin 3.8 g/dL (2.2-4.2); Glucose 107 mg/dL (74-106); Potassium 3.7 mmol/L (3.5-5.1); Protein, Total 7.9 g/dL (6.4-8.2); Sodium Level 135 mmol/L (136-145); Thyroid Stim Hormone (TSH) 0.81 uIU/mL (0.358-3.74); Uric Acid 5.2 mg/dL (3.5-7.2)
[2022-02-18 13:20] LABS: Vitamin D,25 Hydroxy 31.6 ng/mL
== END | disposition home or self-care (01) ==
LOC: POLAB3 09:25
PROVIDERS: PCP Family Medicine Geriatric Medicine; Visit Provider Family Medicine Geriatric Medicine
DX: I10 Essential (primary) hypertension (principal); E55.9 Vitamin D deficiency, unspecified; F52.8 Other sexual dysfunction not due to a substance or known physiological condition; M10.9 Gout, unspecified
CPT/HCPCS: 36415; 80053; 82306; 84403; 84443; 84550; 85025

== ENCOUNTER → 2022-04-11 | Outpatient (CLI) | payer MEDICARE, BC, SELFPAY ==
[2022-04-11 11:01] LABS: AST(SGOT) 23 U/L (15-37); Alanine Aminotransfer ALT/SGPT 23 U/L (16-61); Albumin, Serum 3.9 g/dL (3.2-5.0); Alkaline Phosphatase 50 U/L (45-117); Cholesterol 144 mg/dL (200); Globulin 3.4 g/dL (2.2-4.2); High Density Lipoprotein 59 mg/dL; Protein, Total 7.3 g/dL (6.4-8.2); Triglycerides 119 mg/dL; Very Low Density Lipoprotein 24 mg/dL (5-40)
== END | disposition home or self-care (01) ==
LOC: MTLAB 07:33
PROVIDERS: PCP Family Medicine Geriatric Medicine; Referring Provider Internal Medicine Cardiovascular Disease; Visit Provider Internal Medicine Cardiovascular Disease
DX: E78.00 Pure hypercholesterolemia, unspecified (principal)
CPT/HCPCS: 36415; 80061; 80076

== ENCOUNTER → 2022-08-22 | Outpatient (CLI) | payer MEDICARE, BC, SELFPAY ==
[2022-08-22 10:42] LABS: Absolute Lymphocyte Count 2.39 X10^3/uL (0.83-4.51); Absolute Neutrophil Count 4.2 X10^3/uL (2.0-7.7); Basophil# 0.06 X10^3/uL; Basophil% 0.8 % (0-1); Eosinophil# 0.22 X10^3/uL; Eosinophils% 2.9 % (0-5); Hematocrit 41.7 % (40-54); Hemoglobin 14.3 g/dL (13.0-16.5); Lymphocyte # 2.39 X10^3/ul (0.83-4.51); Mean Corp Hgb Conc 34.3 g/dL (32-36); Mean Corpuscular Volume 96.3 fL (80-94); Mean Platelet Vol. 11.4 fl (6.2-12.0); Monocyte# 0.59 X10^3/uL; Monocyte% 7.9 % (0-10); NRBC Flagged by Analyzer 0 % (0-5); Neutrophil % 56.1 % (47-70); Platelet Count 205 K/mm3 (150-450); RBC Distribution Width CV 14.7 % (11.6-14.6); RBC Distribution Width SD 52.4 fl (35.1-43.9); Red Blood Count 4.33 M/mm3 (4.6-6.2); White Blood Count 7.5 K/mm3 (4.4-11.0)
[2022-08-22 10:56] LABS: Vitamin D,25 Hydroxy 27.5 ng/mL
[2022-08-22 11:09] LABS: ALB/GLOB Ratio 1.1 RATIO (0.9-2.4); AST(SGOT) 27 U/L (15-37); Alanine Aminotransfer ALT/SGPT 34 U/L (16-61); Albumin, Serum 3.9 g/dL (3.2-5.0); Alkaline Phosphatase 51 U/L (45-117); Anion Gap 6 (5-15); BUN 18 mg/dL (7-18); BUN/Creat Ratio 19.4 RATIO (10-20); Calcium,Total 9.3 mg/dL (8.5-10.1); Chloride 102 mmol/L (98-107); Creatinine, Serum 0.93 mg/dL (0.70-1.30); EST Glomerular Filtration Rate 83 mL/min (>60); Est Glom Filt Rate - Afr Amer 101 mL/min (>60); Globulin 3.7 g/dL (2.2-4.2); Glucose 108 mg/dL (74-106); Potassium 3.8 mmol/L (3.5-5.1); Protein, Total 7.6 g/dL (6.4-8.2); Sodium Level 134 mmol/L (136-145); Thyroid Stim Hormone (TSH) 1.04 uIU/mL (0.358-3.74); Uric Acid 5.5 mg/dL (3.5-7.2)
== END | disposition home or self-care (01) ==
LOC: POLAB3 08:58
PROVIDERS: PCP Family Medicine Geriatric Medicine; Visit Provider Family Medicine Geriatric Medicine
DX: E55.9 Vitamin D deficiency, unspecified (principal); I10 Essential (primary) hypertension; F52.8 Other sexual dysfunction not due to a substance or known physiological condition; M10.9 Gout, unspecified
CPT/HCPCS: 36415; 80053; 82306; 84403; 84443; 84550; 85025

== ENCOUNTER → 2022-10-28 | Outpatient (CLI) | payer MEDICARE, BC, SELFPAY ==
[2022-10-28 12:46] LABS: AST(SGOT) 28 U/L (15-37); Alanine Aminotransfer ALT/SGPT 25 U/L (16-61); Alkaline Phosphatase 53 U/L (45-117); Cholesterol 170 mg/dL (200); Globulin 3.5 g/dL (2.2-4.2); High Density Lipoprotein 60 mg/dL; Protein, Total 7.5 g/dL (6.4-8.2); Triglycerides 86 mg/dL; Very Low Density Lipoprotein 17 mg/dL (5-40)
== END | disposition home or self-care (01) ==
PROVIDERS: PCP Family Medicine Geriatric Medicine; Referring Provider Internal Medicine Cardiovascular Disease; Visit Provider Internal Medicine Cardiovascular Disease
DX: E78.00 Pure hypercholesterolemia, unspecified (principal)
CPT/HCPCS: 36415; 80061; 80076

== ENCOUNTER → 2023-02-27 | Outpatient (CLI) | payer MEDICARE, BC, SELFPAY ==
[2023-02-27 12:37] LABS: Absolute Neutrophil Count 3.3 X10^3/uL (2.0-7.7); Basophil# 0.07 X10^3/uL; Basophil% 1.1 % (0-1); Eosinophil# 0.09 X10^3/uL; Eosinophils% 1.4 % (0-5); Hematocrit 40.2 % (40-54); Lymphocyte % 33.4 % (19-41); Mean Corp Hgb Conc 34.8 g/dL (32-36); Mean Corpuscular Hgb 33.9 pg (27.0-32.0); Mean Corpuscular Volume 97.3 fL (80-94); Monocyte# 0.66 X10^3/uL; Monocyte% 10.5 % (0-10); NRBC Flagged by Analyzer 0 % (0-5); Neutrophil # 3.34 X10^3/uL (2.7-7.7); Neutrophil % 53.3 % (47-70); Platelet Count 207 K/mm3 (150-450); RBC Distribution Width CV 14.5 % (11.6-14.6); Red Blood Count 4.13 M/mm3 (4.6-6.2); White Blood Count 6.3 K/mm3 (4.4-11.0)
[2023-02-27 13:03] LABS: Vitamin D,25 Hydroxy 41.8 ng/mL
[2023-02-27 13:45] LABS: ALB/GLOB Ratio 1.1 RATIO (0.9-2.4); AST(SGOT) 25 U/L (15-37); Alanine Aminotransfer ALT/SGPT 26 U/L (16-61); Albumin, Serum 3.9 g/dL (3.2-5.0); Alkaline Phosphatase 47 U/L (45-117); Anion Gap 9 (5-15); BUN 22 mg/dL (7-18); BUN/Creat Ratio 20.6 RATIO (10-20); Calcium,Total 9.1 mg/dL (8.5-10.1); Chloride 100 mmol/L (98-107); Creatinine, Serum 1.07 mg/dL (0.70-1.30); EST Glomerular Filtration Rate 70 mL/min (>60); Est Glom Filt Rate - Afr Amer 85 mL/min (>60); Globulin 3.6 g/dL (2.2-4.2); Glucose 97 mg/dL (74-106); Potassium 3.6 mmol/L (3.5-5.1); Protein, Total 7.5 g/dL (6.4-8.2); Sodium Level 133 mmol/L (136-145); Thyroid Stim Hormone (TSH) 0.81 uIU/mL (0.358-3.74); Uric Acid 5.4 mg/dL (3.5-7.2)
== END | disposition home or self-care (01) ==
LOC: POLAB3 09:06
PROVIDERS: PCP Family Medicine Geriatric Medicine; Visit Provider Family Medicine Geriatric Medicine
DX: I10 Essential (primary) hypertension (principal); M10.9 Gout, unspecified; E55.9 Vitamin D deficiency, unspecified
CPT/HCPCS: 36415; 80053; 82306; 84443; 84550; 85025

== ENCOUNTER 2023-03-25 18:11 | Emergency (ER) | payer MEDICARE, BC, SELFPAY ==
[2023-03-25 18:12] VITALS: BP 156/103; PULSE 81; RESP 18; TEMP 36.1; O2SAT 99; BMI 29.1
--- NOTE | 2023-03-25 19:20 | RAD_ITS ---
INDICATION: INJURY EXAMINATION/TECHNIQUE: X-RAY - RIGHT XR Knee Complete 4 Views or More 4 VIEWS COMPARISON: : No relevant prior comparison study available FINDINGS: Bones: Bony elements have normal alignment, total knee arthroplasty is present. No fracture malalignment or hardware failure. Joints: Visualized joint spaces are maintained. No subluxation or displacement. No periarticular erosions. Soft tissues: Significant prepatellar soft tissue swelling is present. No soft tissue gas. No destructive bony process. RAD/Knee 4 or More Views IMPRESSION: 1. RIGHT total knee of plasties, normal alignment, no fracture dislocation or destructive bony process. 2. Significant soft tissue swelling particularly in the prepatellar soft tissue space. No soft tissue gas. Electronically Signed: José Antonio Hoang MD at 20:16 EDT ,
--- NOTE | 2023-03-25 20:32 | EDS_ITS ---
HPI History of Present Illness Chief Complaint: Lower Extremity Injury Informant: patient and spouse/S.O. Narrative Narrative: 4 or 5 hours ago, patient was in a store and picked up a watermelon to purchase, he accidentally ran into a metal rack which caused him to fall to his knees but more so to the right one which has been hurting and swollen since then. He has been able to walk on it, the swelling/bruising has traveled down his leg where there is no pain now, he has some pain in his right knee only. None on the left. No other injuries. He takes aspirin and clopidogrel no anticoagulants. [facility] Medical History Atherosclerotic heart disease of [place] coronary artery without angina pectoris Bilateral carotid artery stenosis Carotid bruit Essential (primary) hypertension HLD (hyperlipidemia) Hypothyroidism Mild aortic valve stenosis Right bundle branch block (RBBB) with left anterior fascicular block Vertigo Home Medications allopurinol 300 mg tablet 300 mg PO QDAY gout 90 days #90 tabs 12/01/17 [History Last Taken 11/20/18 08:00 300 mg] aspirin 81 mg tablet,delayed release (Adult Low Dose Aspirin) 81 mg PO QDAY 12/01/17 [History Last Taken 11/20/18 08:00] multivitamin (Men's Multi-Vitamin tablet) 1 tab PO QDAY 12/01/17 [History Last Taken 11/20/18 10:00] vitamin B complex (Vitamins B Complex tablet) 1 tab PO QDAY 12/01/17 [History Last Taken 11/20/18 10:00] sildenafil 100 mg tablet 100 mg PO QDAY PRN ed 68 days #68 tabs 12/04/17 [History Last Taken 11/12/18 21:00] atorvastatin 40 mg tablet 40 mg PO DAILY #90 tabs 04/30/22 [Rx Last Taken Unknown] clopidogrel 75 mg tablet 75 mg PO DAILY #90 tabs 04/30/22 [Rx Last Taken Unknown] metoprolol succinate 100 mg tablet,extended release 24 hr 100 mg PO DAILY #90 tabs 04/30/22 [Rx Last Taken Unknown] cholecalciferol (vitamin D3) 25 mcg (1,000 unit) tablet 25 mcg PO DAILY 10/29/22 [History Last Taken Unknown] amlodipine 5 mg tablet See Rx Instructions .Route .COMPLEX #90 tabs 02/10/23 [Rx Last Taken Unknown] hydrochlorothiazide 25 mg tablet See Rx Instructions .Route .COMPLEX #90 tabs 02/10/23 [Rx Last Taken Unknown] Allergy/AdvReac Type Severity Reaction Status Date / Time lisinopril Allergy Intermediate Angioedema Verified 03/25/23 18:13 Family History Mother Hypertension Sister Hypertension Surgical History History of left heart catheterization (02/21/06) History of rectal polypectomy (1997) 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) Social History Smoking Status: Former smoker alcohol intake: current alcohol intake frequency: 3 or more drinks per day Alcohol type: hard liquor caffeine: Yes what type of physical activity do you participate in: weight training frequency: 3-4 times per week duration: 30-45 minutes/day seatbelt use: always do you feel safe at home: Yes ROS ROS ED Constitutional Constitutional ED: Denies chills or fever(s) Musculoskeletal Musculoskeletal: Reports extremity pain; Denies neck pain Integumentary Denies Abrasions, rash or wounds Neurologic Neurologic: Denies paresthesias or weakness EXAM Physical Exam Const Vital Signs: 03/25/23 18:12 Temperature 97 F L Temperature Source Temporal Pulse Rate 81 Respiratory Rate 18 Blood Pressure 156/103 H Blood Pressure Mean 120 Pulse Ox 99 Oxygen Delivery Method Room Air Positive well nourished and well developed General Appearance ED: well developed and NAD Neck full ROM and supple Back/Spine normal ROM and normal to inspection Extremity Extremity Narrative: Swelling and ecchymosis anterior right knee, there is a hematoma that is distal to the knee laterally where there is no tenderness. There is a well-healed surgical incision anteriorly with no dehiscence or signs of a laceration. He has limited range of motion of the knee due to the swelling but his extensor mechanism is intact and ligaments are intact with stressing. There is a small ecchymosis that is nontender at the medial aspect of the left knee, there is no bony tenderness or limited range of motion at all, no effusion. Neurovascularly distally intact both lower extremities. Full range of motion of ankles and hips without pain. Neuro oriented x3, no focal motor deficits and no sensory deficits noted Sensorium / Orientation: alert Psych mental status grossly normal and thought process normal Skin no wounds Rashes: no rashes MDM MDM MDM Narrative Medical decision making narrative: 4 view x-ray series of the right knee is negative for acute fracture or dislocation on my interpretation, radiology in agreement. Patient was offered analgesics he declines and states he has Tylenol at home if he shall needed, he was offered an Rene wrap which he is okay with, and we will give him orthopedics to follow-up with if he has issues after the swelling goes down but in the meantime he can continue to walk as tolerated use the Rene wrap and ice and use Tylenol. Radiography Diagnostic Testing: Clinical Impression(s) from Imaging Studies Knee X-Ray 03/25/23 19:20 IMPRESSION: 1. RIGHT total knee of plasties, normal alignment, no fracture dislocation or destructive bony process. 2. Significant soft tissue swelling particularly in the prepatellar soft tissue space. No soft tissue gas. Electronically Signed: José Antonio Hoang MD at 20:16 EDT , Discharge Plan Triage Chief Complaint: Lower Extremity Injury ED Provider: Jaquan Brice Dx/Rx/DC Orders Clinical Impression: Contusion of knee, right Instructions: ED Contusion, Lower Extremity Prescriptions: No Action sildenafil 100 mg tablet 100 mg PO QDAY PRN (Reason: ed) 68 Days Qty: 68 Patient Comments: allopurinol 300 mg tablet 300 mg PO QDAY 90 Days Qty: 90 Patient Comments: aspirin [Adult Low Dose Aspirin] 81 mg tablet,delayed release (DR/EC) 81 mg PO QDAY vitamin B complex [Vitamins B Complex] tablet 1 tab PO QDAY multivitamin [Men's Multi-Vitamin] tablet 1 tab PO QDAY cholecalciferol (vitamin D3) 25 mcg (1,000 unit) tablet 25 mcg PO DAILY clopidogrel 75 mg tablet 75 mg PO DAILY Qty: 90 3RF atorvastatin 40 mg tablet 40 mg PO DAILY Qty: 90 3RF metoprolol succinate 100 mg tablet extended release 24 hr 100 mg PO DAILY Qty: 90 4RF hydrochlorothiazide 25 mg tablet See Rx Instructions .ROUTE .COMPLEX Qty: 90 3RF Dose Instruction: TAKE 1 TABLET DAILY Rx Instructions: TAKE 1 TABLET DAILY amlodipine 5 mg tablet See Rx Instructions .ROUTE .COMPLEX Qty: 90 3RF Dose Instruction: TAKE 1 TABLET DAILY Rx Instructions: TAKE 1 TABLET DAILY Primary Care Provider: Jones Madrigal Chi Referrals: Alan Eller DO [Med Staff - Active Staff] - As Needed Jones Madrigal Chi, MD [Primary Care Provider] - Disposition Disposition: Home, Self Care
== END 2023-03-25 20:56 | disposition home or self-care (01) ==
LOC: ED 20:42
PROVIDERS: Emergency Provider Emergency Medicine; PCP Family Medicine Geriatric Medicine; Visit Provider Emergency Medicine
DX: S80.01XA Contusion of right knee, initial encounter (principal); Y92.512 Supermarket, store or market as the place of occurrence of the external cause; I10 Essential (primary) hypertension; E78.5 Hyperlipidemia, unspecified; I25.10 Atherosclerotic heart disease of native coronary artery without angina pectoris; Z79.899 Other long term (current) drug therapy; Z87.891 Personal history of nicotine dependence; W18.39XA Other fall on same level, initial encounter; Y93.89 Activity, other specified; Y99.8 Other external cause status; Z79.82 Long term (current) use of aspirin; Z79.02 Long term (current) use of antithrombotics/antiplatelets; Z96.653 Presence of artificial knee joint, bilateral
CPT/HCPCS: 73564; 99282

== ENCOUNTER → 2023-09-03 | Outpatient (CLI) | payer MEDICARE, BC, SELFPAY ==
--- OUTSIDE RECORDS SUMMARY | 2023-09-03 10:20 | XMS RPT_ITS | CCD ---
Author Name Unknown Address [address] [place] [address] Organization [facility] Care Team Providers Care Chief Operator Reformer Name Role Phone Toni Sujata Chirinos Unavailable [place] Gardiner, Leticia Solares Unavailable [phone] Myron Patiño Unavailable Unavailable Rossy Muñozjenny Chirinos Unavailable Medications Completed/Discontinued Medications Medication Drug Class(es) Dates Sig (Normalized) Sig (Original) allopurinol 300 mg oral tablet (4 sources) Xanthine Oxidase Inhibitor take 1 tablet by mouth once daily ALLOPURINOL 300 MG TABS One tablet by mouth daily ALLOPURINOL [id number] Ada Espinoza aspirin 81 mg delayed release oral tablet (8 sources) Platelet Aggregation Inhibitor, Nonsteroidal Anti-inflammatory Drug Start: 11-01-2016 take 1 tablet by mouth once daily ASPIRIN EC 81 MG TBEC One tablet by mouth daily ASPIRIN [id number] Lilibeth Damian RN Problems Active Problems Problem Classification Problem Date Documented Date Episodic/Chronic Coronary atherosclerosis and other heart disease (16 sources) Atherosclerotic heart disease of [place] coronary artery without angina pectoris; Translations: [Coronary arteriosclerosis] Onset: 11-13-2010 Resolved: 04-19-2015 11-01-2015 Chronic Disorders of lipid metabolism (4 sources) Hyperlipidemia; Translations: [Hyperlipidemia, unspecified] Onset: 11-13-2010 11-13-2010 Chronic Essential hypertension (4 sources) Hypertensive disorder; Translations: [Essential (primary) hypertension] Onset: 04-25-2015 04-25-2015 Chronic Unclassified (4 sources) Long-term drug therapy; Translations: [Other senior living (current) drug therapy] Onset: 11-13-2010 11-13-2010 Past or Other Problems Problem Classification Problem Date Documented Date Episodic/Chronic Abdominal hernia (4 sources) Right inguinal hernia ; Translations: [Unilateral inguinal hernia, without obstruction or gangrene, not specified as recurrent] Onset: 06-25-2010 06-25-2010 Episodic Other circulatory disease (4 sources) Carotid bruit; Translations: [Other specified symptoms and signs involving the circulatory and respiratory systems] Onset: 11-13-2010 11-13-2010 Episodic Other nutritional; endocrine; and metabolic disorders (5 sources) Body mass index (BMI) 28.0-28.9, adult; Translations: [FH: Hypertension] Onset: 09-07-2013 09-07-2013 Episodic Other screening for suspected conditions (not mental disorders or infectious disease) (8 sources) Abnormal result of cardiovascular function study, unspecified; Translations: [Abnormal result of cardiovascular function study, unspecified] Onset: 11-13-2010 Resolved: 04-19-2015 11-13-2010 Episodic Residual codes; unclassified (3 sources) FH: Hypertension; Translations: [Family history of ischemic heart disease and other diseases of the circulatory system] 04-20-2014 Episodic Unclassified (2 sources) Preoperative cardiovascular examination ; Translations: [Encounter for preprocedural cardiovascular examination] Onset: 11-13-2010 Resolved: 04-19-2015 04-19-2015 Results Test Name Value Interpretation Reference Range Facil ity Vital Signs Date Time Vital Sign Value Performing Clinician Mady larios 06-03-2017 10:37-0400 BMI (Body Mass Index) 28.24 kg/m2 Sujata Lockwood [employer] Work Phone: 06-03-2017 10:37-0400 BP Diastolic 64 mm[Hg] Sujata Lockwood [employer] [facility] Work Phone: 06-03-2017 10:37-0400 BP Systolic 120 mm[Hg] Sujata Lockwood [employer] [facility] Work Phone: 06-03-2017 10:37-0400 Height 168.28 cm Sujata Lockwood [employer] [facility] Work Phone: 06-03-2017 10:37-0400 Pulse (Heart Rate) 64 /min Sujata Lockwood [employer] [facility] Work Phone: 06-03-2017 10:37-0400 Respiratory Rate 20 /min Sujata Lockwood [facility] Work Phone: 06-03-2017 10:37-0400 Weight 79.97 kg Sujata Lockwood [facility] Work Phone: 11-05-2016 09:09-0400 BMI (Body Mass Index) 28.03 kg/m2 Leticia Gardiner PA-C [facility] Work Phone: 11-05-2016 09:09-0400 BP Diastolic 80 mm[Hg] Leticia Gardiner PA-C [facility] Work Phone: 11-05-2016 09:09-0400 BP Systolic 150 mm[Hg] Leticia Gardiner PA-C [facility] Work Phone: 11-05-2016 09:09-0400 Height 168.28 cm [facility] Work Phone: 11-05-2016 09:09-0400 Pulse (Heart Rate) 60 /min Leticia Gardiner PA-C [facility] Work Phone: 11-05-2016 09:09-0400 Respiratory Rate 20 /min Leticia Gardiner PA-C [facility] Work Phone: 11-05-2016 09:09-0400 Weight 79.38 kg [facility] Work Phone: 05-07-2016 09:06-0400 BSA (Body Surface Area) 1.95 m2 Leticia Gardiner PA-C [facility] Work Phone: 02-05-2013 10:59-0400 Height 168.28 cm Leticia Gardiner PA-C [facility] Work Phone: 02-05-2013 10:59-0400 Weight 81.86 kg Leticia Gardiner PA-C [facility] Work Phone: 06-25-2010 14:54-0500 Body Temperature 98.2 [degF] Leticia Gardiner PA-C [facility] Work Phone: Procedures Date Procedure Procedure Detail Performing Clinician Start: 06-03-2017 End: 06-03-2017 CHRISSY Henry MD Start: 06-03-2017 End: 06-03-2017 Follow Up Appt 6 months Beck Restrepo Start: 05-06-2017 End: 05-16-2017 *Hepatic Function Panel Beck Restrepo Start: 05-06-2017 End: 05-16-2017 Lipid 1996 panel - Serum or Plasma Andrei Henry MD Start: 11-05-2016 End: 11-05-2016 CHRISSY Henry MD Start: 11-05-2016 End: 11-05-2016 Follow Up Appt 6 months Beck Restrepo Start: 11-05-2016 End: 11-08-2016 Nuclear stress test -Lexiscan Andrei Henry MD Start: 10-28-2016 End: 10-29-2016 *Hepatic Function Panel Leticia Gardiner PA-C Work Phone: Start: 10-28-2016 End: 10-29-2016 Lipid 1996 panel - Serum or Plasma Leticia Gardiner PA-C Work Phone: Start: 05-07-2016 End: 05-07-2016 CHRISSY Henry MD Start: 05-07-2016 End: 05-07-2016 Follow Up Appt 6 months Beck Restrepo Start: 04-25-2016 End: 04-29-2016 Lipid 1996 panel - Serum or Plasma Leticia Gardiner PA-C Work Phone: Start: 11-02-2015 End: 04-10-2016 *Hepatic Function Panel Beck Restrepo Start: 11-02-2015 End: 11-02-2015 CHRISSY Hnery MD Start: 11-02-2015 End: 11-02-2015 Follow Up Appt 6 months Beck Restrepo Start: 11-02-2015 End: 11-02-2015 Dietary management education, guidance, and counseling Leticia Gardiner PA-C Start: 10-18-2015 End: 10-23-2015 *Hepatic Function Panel Leticia Gardiner PA-C Work Phone: Start: 10-18-2015 End: 10-23-2015 Lipid 1996 panel - Serum or Plasma Leticia Gardiner PA-C Work Phone: Start: 04-25-2015 End: 04-25-2015 CHRISSY Henry MD Start: 04-25-2015 End: 04-26-2015 Documentation of current medications Andrei Henry MD Start: 04-25-2015 End: 04-25-2015 Follow Up Appt 6 months Beck Restrepo Start: 04-14-2015 End: 04-19-2015 *Hepatic Function Panel Beck Restrepo Start: 04-14-2015 End: 04-19-2015 Lipid 1996 panel - Serum or Plasma Andrei Henry MD Start: 10-25-2014 End: 10-25-2014 CHRISSY Henry MD Start: 10-25-2014 End: 10-26-2014 Documentation of current medications Andrei Henry MD Start: 10-25-2014 End: 10-25-2014 Follow Up Appt 6 months Beck Restrepo Start: 10-25-2014 End: 10-31-2014 Nuclear stress test -Lexiscan Andrei Henry MD Start: 10-09-2014 End: 10-12-2014 *Hepatic Function Panel Beck Restrepo Start: 10-09-2014 End: 10-12-2014 Lipid 1996 panel - Serum or Plasma Andrei Henry MD Start: 04-20-2014 End: 04-20-2014 CHRISSY Henry MD Start: 04-20-2014 End: 04-20-2014 Follow Up Appt 6 months Beck Restrepo Start: 01-09-2014 End: 02-25-2014 *Hepatic Function Panel Leticia Gardiner PA-C Work Phone: Start: 01-09-2014 End: 02-25-2014 Lipid 1996 panel - Serum or Plasma Leticia Gardiner PA-C Work Phone: Start: 09-07-2013 End: 09-21-2013 Carotid duplex Andrei Henry MD Start: 09-07-2013 End: 09-07-2013 CHRISSY Henry MD Start: 09-07-2013 End: 09-20-2013 Echocardiography Andrei Henry MD Start: 09-07-2013 End: 09-07-2013 Follow Up Appt 6 months Beck Restrepo Start: 09-07-2013 End: 09-21-2013 Us abdominal real time w/image limited Andrei Henry MD Start: 07-11-2013 End: 07-29-2013 *Hepatic Function Panel Beck Restrepo Start: 07-11-2013 End: 07-29-2013 Lipid 1996 panel - Serum or Plasma Andrei Henry MD Start: 02-05-2013 End: 02-05-2013 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 Andrei Henry MD Start: 02-05-2013 End: 02-05-2013 Follow Up Appt 6 months Beck Restrepo Start: 02-05-2013 End: 09-20-2013 Nuclear stress test -adenosine Andrei Henry MD Start: 01-09-2013 End: 01-20-2013 *Hepatic Function Panel Beck Restrepo Start: 01-09-2013 End: 01-20-2013 Lipid 1996 panel - Serum or Plasma Andrei Henry MD Start: 07-29-2012 End: 07-29-2012 eRx Transmitted during this visit (Medicare only) Andrei Henry MD Start: 07-29-2012 End: 07-29-2012 Follow Up Appt 6 months Beck Restrepo Start: 02-06-2012 End: 02-06-2012 Follow Up Appt 6 months Beck Restrepo Start: 01-13-2012 End: 07-22-2012 *Hepatic Function Panel Beck Restrepo Start: 01-13-2012 End: 07-22-2012 Lipid Honey panel - Serum or Plasma Andrei Henry MD Start: 07-30-2011 End: 07-30-2011 Follow Up Appt 6 months Beck Restrepo Start: 11-13-2010 End: 04-19-2015 Preoperative cardiovascular examination PRE-OPERATIVE CARDIOVASCULAR EXAMINATION Leticia Gardiner PA-C Plan of Treatment Date Care Activity Detail Author Start: 12-04-2017 End: 12-04-2017 Appointment Appointment [facility] Work Phone: Start: 11-14-2017 End: 05-16-2017 *Hepatic Function Panel *Hepatic Function Panel [facility] Work Phone: Start: 11-14-2017 End: 05-16-2017 Lipid panel [AGGREGATE] *Lipid Profile CC PCP [facility] Work Phone: Start: 06-03-2017 End: 06-03-2017 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 [facility] Work Phone: Start: 06-03-2017 End: 06-03-2017 Follow Up Appt 6 months Follow Up Appt 6 months [facility] Work Phone: Start: 06-03-2017 End: 06-03-2017 Appointment Appointment [facility] Work Phone: Start: 05-06-2017 End: 05-16-2017 *Hepatic Function Panel *Hepatic Function Panel [facility] Work Phone: Start: 05-06-2017 End: 05-16-2017 Lipid panel [AGGREGATE] *Lipid Profile CC PCP [facility] Work Phone: Start: 11-05-2016 End: 11-05-2016 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 [facility] Work Phone: Start: 11-05-2016 End: 11-05-2016 Follow Up Appt 6 months Follow Up Appt 6 months [facility] Work Phone: Start: 11-05-2016 End: 11-05-2016 Nuclear stress test -Lexiscan Nuclear stress test -Lexiscan [facility] Work Phone: Start: 10-28-2016 End: 10-29-2016 *Hepatic Function Panel *Hepatic Function Panel [facility] Work Phone: Start: 10-28-2016 End: 10-29-2016 Lipid panel [AGGREGATE] *Lipid Profile CC PCP [facility] Work Phone: Start: 05-07-2016 End: 05-07-2016 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 [facility] Work Phone: Start: 05-07-2016 End: 05-07-2016 Follow Up Appt 6 months Follow Up Appt 6 months [facility] Work Phone: Start: 04-25-2016 End: 04-29-2016 Lipid panel [AGGREGATE] *Lipid Profile CC PCP [facility] Work Phone: Start: 11-02-2015 End: 04-29-2016 *Hepatic Function Panel *Hepatic Function Panel [facility] Work Phone: Start: 11-02-2015 End: 11-02-2015 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 [facility] Work Phone: Start: 11-02-2015 End: 11-02-2015 Follow Up Appt 6 months Follow Up Appt 6 months [facility] Work Phone: Start: 10-18-2015 End: 10-23-2015 *Hepatic Function Panel *Hepatic Function Panel [facility] Work Phone: Start: 10-18-2015 End: 10-23-2015 Lipid panel [AGGREGATE] *Lipid Profile CC PCP [facility] Work Phone: Start: 04-25-2015 End: 04-25-2015 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 [facility] Work Phone: Start: 04-25-2015 End: 04-25-2015 Follow Up Appt 6 months Follow Up Appt 6 months [facility] Work Phone: Start: 04-14-2015 End: 04-19-2015 *Hepatic Function Panel *Hepatic Function Panel [facility] Work Phone: Start: 04-14-2015 End: 04-19-2015 Lipid panel [AGGREGATE] *Lipid Profile CC PCP [facility] Work Phone: Start: 10-25-2014 End: 10-25-2014 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 [facility] Work Phone: Start: 10-25-2014 End: 10-25-2014 Follow Up Appt 6 months Follow Up Appt 6 months [facility] Work Phone: Start: 10-25-2014 End: 10-25-2014 Nuclear stress test -Lexiscan Nuclear stress test -Lexiscan [facility] Work Phone: Start: 10-09-2014 End: 10-12-2014 *Hepatic Function Panel *Hepatic Function Panel [facility] Work Phone: Start: 10-09-2014 End: 10-12-2014 Lipid panel [AGGREGATE] *Lipid Profile CC PCP [facility] Work Phone: Start: 04-20-2014 End: 04-20-2014 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 [facility] Work Phone: Start: 04-20-2014 End: 04-20-2014 Follow Up Appt 6 months Follow Up Appt 6 months [facility] Work Phone: Start: 01-09-2014 End: 02-25-2014 *Hepatic Function Panel *Hepatic Function Panel [facility] Work Phone: Start: 01-09-2014 End: 02-25-2014 Lipid panel [AGGREGATE] *Lipid Profile CC PCP [facility] Work Phone: Start: 09-07-2013 End: 09-07-2013 Carotid duplex Carotid duplex [facility] Work Phone: Start: 09-07-2013 End: 09-07-2013 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 [facility] Work Phone: Start: 09-07-2013 End: 09-07-2013 Echocardiography Echocardiogram (complete) [facility] Work Phone: Start: 09-07-2013 End: 09-07-2013 Follow Up Appt 6 months Follow Up Appt 6 months [facility] Work Phone: Start: 09-07-2013 End: 09-07-2013 Us abdominal real time w/image limited US Abdominal (aneurysm screening) [facility] Work Phone: Start: 07-11-2013 End: 07-29-2013 *Hepatic Function Panel *Hepatic Function Panel [facility] Work Phone: Start: 07-11-2013 End: 07-29-2013 Lipid panel [AGGREGATE] *Lipid Profile CC PCP [facility] Work Phone: Start: 02-05-2013 End: 02-05-2013 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 [facility] Work Phone: Start: 02-05-2013 End: 02-05-2013 Follow Up Appt 6 months Follow Up Appt 6 months [facility] Work Phone: Start: 02-05-2013 End: 02-05-2013 Nuclear stress test -adenosine Nuclear stress test -adenosine [facility] Work Phone: Start: 01-09-2013 End: 01-20-2013 *Hepatic Function Panel *Hepatic Function Panel [facility] Work Phone: Start: 01-09-2013 End: 01-20-2013 Lipid panel [AGGREGATE] *Lipid Profile [facility] Work Phone: Start: 07-29-2012 End: 07-29-2012 Follow Up Appt 6 months Follow Up Appt 6 months [facility] Work Phone: Start: 02-06-2012 End: 02-06-2012 Follow Up Appt 6 months Follow Up Appt 6 months [facility] Work Phone: Start: 01-13-2012 End: 07-22-2012 *Hepatic Function Panel *Hepatic Function Panel [facility] Work Phone: Start: 01-13-2012 End: 07-22-2012 Lipid panel [AGGREGATE] *Lipid Profile [facility] Work Phone: Start: 07-30-2011 End: 07-30-2011 Follow Up Appt 6 months Follow Up Appt 6 months [facility] Work Phone: Patient Education [facility] Work Phone: Summary Purpose Family History No Family History Records Found Advance Directives No Advanced Directives Records Found Additional Source Comments (unrecognized sect ion and content) No Status Records Found INFORMATION SOURCE (unrecogn ized section and content) FOR RECORDS PERTAINING TO PATIENTS WHO ARE OR HAVE BEEN ENROLLED IN A CHEMICAL DEPENDENCY/SUBSTANCEABUSE PROGRAM, SOME INFORMATION MAY BE OMITTED. This clinical summary was aggregated from multiple sources. Caution should be exercised in using it in the provision of clinical care. This summary normalizes information from multiple sources, and as a consequence, information in this document may materially change the coding, format and clinical context of patient data. In addition, data may be omitted in some cases. CLINICAL DECISIONS SHOULD BE BASED ON THE PRIMARY CLINICAL RECORDS. [facility]. provides no warranty or guarantee of the accuracy or completeness of information in this document.
[2023-09-03 11:22] LABS: Absolute Lymphocyte Count 1.57 X10^3/uL (0.83-4.51); Absolute Neutrophil Count 3.5 X10^3/uL (2.0-7.7); Basophil# 0.05 X10^3/uL; Basophil% 0.9 % (0-1); Eosinophil# 0.07 X10^3/uL; Eosinophils% 1.2 % (0-5); Hematocrit 39.9 % (40-54); Hemoglobin 13.3 g/dL (13.0-16.5); Lymphocyte # 1.57 X10^3/ul (0.83-4.51); Lymphocyte % 27.2 % (19-41); Mean Corp Hgb Conc 33.3 g/dL (32-36); Mean Corpuscular Hgb 32.5 pg (27.0-32.0); Mean Corpuscular Volume 97.6 fL (80-94); Monocyte# 0.62 X10^3/uL; Monocyte% 10.7 % (0-10); NRBC Flagged by Analyzer 0 % (0-5); Neutrophil # 3.45 X10^3/uL (2.7-7.7); Neutrophil % 59.7 % (47-70); Platelet Count 211 K/mm3 (150-450); RBC Distribution Width CV 14.9 % (11.6-14.6); Red Blood Count 4.09 M/mm3 (4.6-6.2); White Blood Count 5.8 K/mm3 (4.4-11.0)
[2023-09-03 11:47] LABS: Vitamin D,25 Hydroxy 38.7 ng/mL
[2023-09-03 13:02] LABS: ALB/GLOB Ratio 1.1 RATIO (0.9-2.4); AST(SGOT) 24 U/L (15-37); Alanine Aminotransfer ALT/SGPT 22 U/L (16-61); Alkaline Phosphatase 49 U/L (45-117); Anion Gap 5 (5-15); BUN 20 mg/dL (7-18); Calcium,Total 9.7 mg/dL (8.5-10.1); Chloride 102 mmol/L (98-107); Creatinine, Serum 1.05 mg/dL (0.70-1.30); EST Glomerular Filtration Rate 72 mL/min (>60); Est Glom Filt Rate - Afr Amer 87 mL/min (>60); Globulin 3.5 g/dL (2.2-4.2); Glucose 109 mg/dL (74-106); Potassium 3.5 mmol/L (3.5-5.1); Protein, Total 7.5 g/dL (6.4-8.2); Sodium Level 132 mmol/L (136-145); Thyroid Stim Hormone (TSH) 0.82 uIU/mL (0.358-3.74)
== END | disposition home or self-care (01) ==
LOC: POLAB3 09:58
PROVIDERS: PCP Family Medicine Geriatric Medicine; Visit Provider Family Medicine Geriatric Medicine
DX: I10 Essential (primary) hypertension (principal); E55.9 Vitamin D deficiency, unspecified; M10.9 Gout, unspecified
CPT/HCPCS: 36415; 80053; 82306; 84443; 84550; 85025

== ENCOUNTER → 2023-09-30 | Outpatient (CLI) | payer MEDICARE, BC, SELFPAY ==
--- OUTSIDE RECORDS SUMMARY | 2023-09-30 08:11 | XMS RPT_ITS | CCD ---
Author Name Unknown Address [address] [place] [address] Organization [facility] Care Team Providers Care Attendance Officer Name Role Phone Toni Sujata Chirinos Unavailable [place] Gardiner, Leticia Solares Unavailable [phone] Myron Patiño Unavailable Unavailable Rossy Muñozjenny Chirinos Unavailable Medications Completed/Discontinued Medications Medication Drug Class(es) Dates Sig (Normalized) Sig (Original) allopurinol 300 mg oral tablet (4 sources) Xanthine Oxidase Inhibitor take 1 tablet by mouth once daily ALLOPURINOL 300 MG TABS One tablet by mouth daily ALLOPURINOL [id number] Ada Espinoza aspirin 81 mg delayed release oral tablet (8 sources) Platelet Aggregation Inhibitor, Nonsteroidal Anti-inflammatory Drug Start: 11-01-2016 take 1 tablet by mouth once daily ASPIRIN EC 81 MG TBEC One tablet by mouth daily ASPIRIN [id number] Lilibeth Damian RN Problems Active Problems Problem Classification Problem Date Documented Date Episodic/Chronic Coronary atherosclerosis and other heart disease (16 sources) Atherosclerotic heart disease of [place] coronary artery without angina pectoris; Translations: [Coronary [...] (Body Mass Index) 28.24 kg/m2 Sujata Lockwood [employer] Work Phone: 06-03-2017 10:37-0400 BP Diastolic 64 mm[Hg] Sujata Lockwood [employer] Work Phone: 06-03-2017 10:37-0400 BP Systolic 120 mm[Hg] Sujata Lockwood [employer] Work Phone: 06-03-2017 10:37-0400 Height 168.28 cm Sujata Lockwood [employer] Work Phone: 06-03-2017 10:37-0400 Pulse (Heart Rate) 64 /min Sujata Lockwood [employer] Work Phone: 06-03-2017 10:37-0400 Respiratory Rate 20 /min Sujata Lockwood [facility] Work Phone: 06-03-2017 10:37-0400 Weight 79.97 kg Sujata Lockwood [facility] Work Phone: 11-05-2016 09:09-0400 BMI (Body Mass Index) 28.03 kg/m2 Leticia Gardiner PA-C [facility] Work Phone: 11-05-2016 09:09-0400 BP Diastolic 80 mm[Hg] Leticia Gardiner PA-C [facility] Work Phone: 11-05-2016 09:09-0400 BP Systolic 150 mm[Hg] Leticia Gardiner PA-C [facility] Work Phone: 11-05-2016 09:09-0400 Height 168.28 cm [facility] Work Phone: 11-05-2016 09:09-0400 Pulse (Heart Rate) 60 /min Leticia Gardiner PA-C [facility] Work Phone: 11-05-2016 09:09-0400 Respiratory Rate 20 /min Leticia Gardiner PA-C [facility] Work Phone: 11-05-2016 09:09-0400 Weight 79.38 kg [place] [facility] Work Phone: 05-07-2016 09:06-0400 BSA (Body Surface Area) 1.95 m2 Leticia Gardiner PA-C [facility] Work Phone: 02-05-2013 10:59-0400 Height 168.28 cm Leticia Gardiner PA-C [facility] Work Phone: 02-05-2013 10:59-0400 Weight 81.86 kg Leticia Gardiner PA-C [facility] Work Phone: 06-25-2010 14:54-0500 Body Temperature 98.2 [degF] Leticia Gardiner PA-C [facility] Work Phone: Procedures Date Procedure [...] Beck Restrepo Start: 11-02-2015 End: 11-02-2015 CHRISSY Henry MD Start: 11-02-2015 End: 11-02-2015 Follow Up [...] Andrei Henry MD Start: 02-05-2013 End: 02-05-2013 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 Andrei Henry MD Start: 02-05-2013 End: 02-05-2013 [...] End: 07-30-2011 Follow Up Appt 6 months eBck Restrepo Start: 11-13-2010 End: 04-19-2015 Preoperative cardiovascular examination PRE-OPERATIVE CARDIOVASCULAR EXAMINATION Leticia Gardiner PA-C Plan of Treatment Date Care Activity Detail Author Start: 12-04-2017 End: 12-04-2017 Appointment Appointment [facility] Work Phone: Start: 11-14-2017 End: 05-16-2017 *Hepatic Function Panel *Hepatic Function Panel [facility] Work Phone: Start: 11-14-2017 End: 05-16-2017 Lipid panel [AGGREGATE] *Lipid Profile CC PCP [facility] Work Phone: Start: 06-03-2017 End: 06-03-2017 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 [facility] Work Phone: Start: 06-03-2017 End: 06-03-2017 Follow Up Appt 6 months Follow Up Appt 6 months [facility] Work Phone: Start: 06-03-2017 End: 06-03-2017 Appointment Appointment [facility] Work Phone: Start: 05-06-2017 End: 05-16-2017 *Hepatic Function Panel *Hepatic Function Panel [facility] Work Phone: Start: 05-06-2017 End: 05-16-2017 Lipid panel [AGGREGATE] *Lipid Profile CC PCP [facility] Work Phone: Start: 11-05-2016 End: 11-05-2016 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 [facility] Work Phone: Start: 11-05-2016 End: 11-05-2016 Follow Up Appt 6 months Follow Up Appt 6 months [facility] Work Phone: Start: 11-05-2016 End: 11-05-2016 Nuclear stress test -Lexiscan Nuclear stress test -Lexiscan [facility] Work Phone: Start: 10-28-2016 End: 10-29-2016 *Hepatic Function Panel *Hepatic Function Panel [facility] Work Phone: Start: 10-28-2016 End: 10-29-2016 Lipid panel [AGGREGATE] *Lipid Profile CC PCP [facility] Work Phone: Start: 05-07-2016 End: 05-07-2016 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 [facility] Work Phone: Start: 05-07-2016 End: 05-07-2016 Follow Up Appt 6 months Follow Up Appt 6 months [facility] Work Phone: Start: 04-25-2016 End: 04-29-2016 Lipid panel [AGGREGATE] *Lipid Profile CC PCP [facility] Work Phone: Start: 11-02-2015 End: 04-29-2016 *Hepatic Function Panel *Hepatic Function Panel [facility] Work Phone: Start: 11-02-2015 End: 11-02-2015 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 [facility] Work Phone: Start: 11-02-2015 End: 11-02-2015 Follow Up Appt 6 months Follow Up Appt 6 months [facility] Work Phone: Start: 10-18-2015 End: 10-23-2015 *Hepatic Function Panel *Hepatic Function Panel [facility] Work Phone: Start: 10-18-2015 End: 10-23-2015 Lipid panel [AGGREGATE] *Lipid Profile CC PCP [facility] Work Phone: Start: 04-25-2015 End: 04-25-2015 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 [facility] Work Phone: Start: 04-25-2015 End: 04-25-2015 Follow Up Appt 6 months Follow Up Appt 6 months [facility] Work Phone: Start: 04-14-2015 End: 04-19-2015 *Hepatic Function Panel *Hepatic Function Panel [facility] Work Phone: Start: 04-14-2015 End: 04-19-2015 Lipid panel [AGGREGATE] *Lipid Profile CC PCP [facility] Work Phone: Start: 10-25-2014 End: 10-25-2014 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 [facility] Work Phone: Start: 10-25-2014 End: 10-25-2014 Follow Up Appt 6 months Follow Up Appt 6 months [facility] Work Phone: Start: 10-25-2014 End: 10-25-2014 Nuclear stress test -Lexiscan Nuclear stress test -Lexiscan [facility] Work Phone: Start: 10-09-2014 End: 10-12-2014 *Hepatic Function Panel *Hepatic Function Panel [facility] Work Phone: Start: 10-09-2014 End: 10-12-2014 Lipid panel [AGGREGATE] *Lipid Profile CC PCP [facility] Work Phone: Start: 04-20-2014 End: 04-20-2014 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 [facility] Work Phone: Start: 04-20-2014 End: 04-20-2014 Follow Up Appt 6 months Follow Up Appt 6 months [facility] Work Phone: Start: 01-09-2014 End: 02-25-2014 *Hepatic Function Panel *Hepatic Function Panel [facility] Work Phone: Start: 01-09-2014 End: 02-25-2014 Lipid panel [AGGREGATE] *Lipid Profile CC PCP [facility] Work Phone: Start: 09-07-2013 End: 09-07-2013 Carotid duplex Carotid duplex [facility] Work Phone: Start: 09-07-2013 End: 09-07-2013 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 [facility] Work Phone: Start: 09-07-2013 End: 09-07-2013 Echocardiography Echocardiogram (complete) [facility] Work Phone: Start: 09-07-2013 End: 09-07-2013 Follow Up Appt 6 months Follow Up Appt 6 months [facility] Work Phone: Start: 09-07-2013 End: 09-07-2013 Us abdominal real time w/image limited US Abdominal (aneurysm screening) [facility] Work Phone: Start: 07-11-2013 End: 07-29-2013 *Hepatic Function Panel *Hepatic Function Panel [facility] Work Phone: Start: 07-11-2013 End: 07-29-2013 Lipid panel [AGGREGATE] *Lipid Profile CC PCP [facility] Work Phone: Start: 02-05-2013 End: 02-05-2013 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 [facility] Work Phone: Start: 02-05-2013 End: 02-05-2013 Follow Up Appt 6 months Follow Up Appt 6 months [facility] Work Phone: Start: 02-05-2013 End: 02-05-2013 Nuclear stress test -adenosine Nuclear stress test -adenosine [facility] Work Phone: Start: 01-09-2013 End: 01-20-2013 *Hepatic Function Panel *Hepatic Function Panel [facility] Work Phone: Start: 01-09-2013 End: 01-20-2013 Lipid panel [AGGREGATE] *Lipid Profile [facility] Work Phone: Start: 07-29-2012 End: 07-29-2012 Follow Up Appt 6 months Follow Up Appt 6 months [facility] Work Phone: Start: 02-06-2012 End: 02-06-2012 Follow Up Appt 6 months Follow Up Appt 6 months [facility] Work Phone: Start: 01-13-2012 End: 07-22-2012 *Hepatic Function Panel *Hepatic Function Panel [facility] Work Phone: Start: 01-13-2012 End: 07-22-2012 Lipid panel [AGGREGATE] *Lipid Profile [facility] Work Phone: Start: 07-30-2011 End: 07-30-2011 Follow Up Appt 6 months Follow Up Appt 6 months [facility] Work Phone: Patient Education [facility] Work Phone: Summary Purpose [...] BE BASED ON THE PRIMARY CLINICAL RECORDS. [facility]. provides no warranty or guarantee of the accuracy or completeness of information in this document.
[2023-09-30 10:11] LABS: AST(SGOT) 27 U/L (15-37); Alanine Aminotransfer ALT/SGPT 25 U/L (16-61); Albumin, Serum 3.9 g/dL (3.2-5.0); Alkaline Phosphatase 57 U/L (45-117); Bilirubin, Direct 0.28 mg/dL (0.00-0.30); Cholesterol 174 mg/dL (200); Globulin 3.6 g/dL (2.2-4.2); High Density Lipoprotein 71 mg/dL; Protein, Total 7.5 g/dL (6.4-8.2); Triglycerides 76 mg/dL; Very Low Density Lipoprotein 15 mg/dL (5-40)
== END | disposition home or self-care (01) ==
LOC: MTLAB 08:07
PROVIDERS: PCP Family Medicine Geriatric Medicine; Referring Provider Internal Medicine Cardiovascular Disease; Visit Provider Internal Medicine Cardiovascular Disease
DX: E78.00 Pure hypercholesterolemia, unspecified (principal); I25.10 Atherosclerotic heart disease of native coronary artery without angina pectoris
CPT/HCPCS: 36415; 80061; 80076

== ENCOUNTER → 2024-03-03 | Outpatient (CLI) | payer MEDICARE, BC, SELFPAY ==
[2024-03-03 10:56] LABS: Absolute Lymphocyte Count 1.67 X10^3/uL (0.83-4.51); Absolute Neutrophil Count 3.3 X10^3/uL (2.0-7.7); Basophil# 0.06 X10^3/uL; Basophil% 1.1 % (0-1); Eosinophil# 0.06 X10^3/uL; Eosinophils% 1.1 % (0-5); Hematocrit 39.5 % (40-54); Hemoglobin 13.8 g/dL (13.0-16.5); Lymphocyte # 1.67 X10^3/ul (0.83-4.51); Lymphocyte % 29.3 % (19-41); Mean Corp Hgb Conc 34.9 g/dL (32-36); Mean Corpuscular Hgb 33.4 pg (27.0-32.0); Mean Corpuscular Volume 95.6 fL (80-94); Mean Platelet Vol. 10.9 fl (6.2-12.0); Monocyte# 0.56 X10^3/uL; Monocyte% 9.8 % (0-10); NRBC Flagged by Analyzer 0 % (0-5); Neutrophil # 3.33 X10^3/uL (2.7-7.7); Neutrophil % 58.5 % (47-70); Platelet Count 198 K/mm3 (150-450); RBC Distribution Width CV 14.2 % (11.6-14.6); Red Blood Count 4.13 M/mm3 (4.6-6.2); White Blood Count 5.7 K/mm3 (4.4-11.0)
[2024-03-03 11:31] LABS: Vitamin D,25 Hydroxy 36.8 ng/mL
[2024-03-03 11:43] LABS: ALB/GLOB Ratio 1.1 RATIO (0.9-2.4); AST(SGOT) 25 U/L (15-37); Alanine Aminotransfer ALT/SGPT 22 U/L (16-61); Alkaline Phosphatase 49 U/L (45-117); Anion Gap 9 (5-15); BUN 18 mg/dL (7-18); BUN/Creat Ratio 18.4 RATIO (10-20); Calcium,Total 9.5 mg/dL (8.5-10.1); Chloride 99 mmol/L (98-107); Creatinine, Serum 0.98 mg/dL (0.70-1.30); EST Glomerular Filtration Rate 78 mL/min (>60); Est Glom Filt Rate - Afr Amer 94 mL/min (>60); Globulin 3.7 g/dL (2.2-4.2); Glucose 110 mg/dL (74-106); Potassium 3.5 mmol/L (3.5-5.1); Protein, Total 7.7 g/dL (6.4-8.2); Sodium Level 132 mmol/L (136-145); Thyroid Stim Hormone (TSH) 0.88 uIU/mL (0.358-3.74); Uric Acid 4.7 mg/dL (3.5-7.2)
== END | disposition home or self-care (01) ==
LOC: LAB 09:53
PROVIDERS: PCP Family Medicine Geriatric Medicine; Visit Provider Family Medicine Geriatric Medicine
DX: I10 Essential (primary) hypertension (principal); M10.9 Gout, unspecified; E55.9 Vitamin D deficiency, unspecified
CPT/HCPCS: 36415; 80053; 82306; 84443; 84550; 85025

== ENCOUNTER → 2024-05-03 | Outpatient (CLI) | payer MEDICARE, BC, SELFPAY ==
[2024-05-03 10:24] LABS: AST(SGOT) 21 U/L (15-37); Alanine Aminotransfer ALT/SGPT 18 U/L (16-61); Albumin, Serum 3.8 g/dL (3.2-5.0); Alkaline Phosphatase 53 U/L (45-117); Bilirubin, Direct 0.31 mg/dL (0.00-0.30); Cholesterol 163 mg/dL (200); Globulin 3.6 g/dL (2.2-4.2); High Density Lipoprotein 65 mg/dL; Protein, Total 7.4 g/dL (6.4-8.2); Triglycerides 124 mg/dL; Very Low Density Lipoprotein 25 mg/dL (5-40)
== END | disposition home or self-care (01) ==
LOC: LAB 09:26
PROVIDERS: PCP Family Medicine Geriatric Medicine; Referring Provider Internal Medicine Cardiovascular Disease; Visit Provider Internal Medicine Cardiovascular Disease
DX: E78.00 Pure hypercholesterolemia, unspecified (principal)
CPT/HCPCS: 36415; 80061; 80076

== ENCOUNTER → 2024-05-19 | Outpatient (CLI) | payer MEDICARE, BC, SELFPAY ==
--- NOTE | 2024-05-19 06:10 | ECHOD_ITS ---
Reason For Study: CORONARY ARTERY DISEASE Procedure This was a 2D Doppler, Color Flow transthoracic echocardiogram. Exam performed in department. Left Ventricle Normal LV size. Mild concentric left ventricular hypertrophy. Left ventricular systolic function is normal. The left ventricular ejection fraction is 60 %. Stage 1 diastolic dysfunction. No regional wall motion abnormalities noted. Right Ventricle Normal RV size. Normal systolic function. Atria Normal left atrium. Normal right atrium. Mitral Valve Normal mitral valve. Tricuspid Valve Normal tricuspid valve. Mild tricuspid valve insufficiency. Pulmonary artery systolic pressure is 24 mmHg. Aortic Valve Trisinus/trileaflet aortic valve. Moderate focal aortic valve calcification. Peak aortic valve gradient 11 mmHg. Mean aortic valve gradient 5 mmHg. Mild (1+) aortic valve insufficiency. Pulmonic Valve Normal pulmonic valve. Great Vessels Normal aortic root. The pulmonary artery is normal size. Normal inferior vena cava. Pericardium/Pleural No pericardial effusion. MMode/2D Measurements & Calculations LVIDd: 3.6 cm IVSd: 1.2 cm LVOT diam: 2.0 cm LVIDs: 2.1 cm LVPWd: 1.2 cm LVOT area: 3.0 cm2 RVDd: 3.0 cm FS: 41.7 % asc Aorta Diam: 3.6 cm LAV(MOD-bp): 60.6 ml LVAd ap4: 24.5 cm2 LAV(MOD-bp) Indexed: 32.0 ml/m2 LVLd ap4: 7.3 cm LAV(MOD-sp2): 59.1 ml EDV(MOD-sp4): 66.4 ml LAV(MOD-sp4): 60.1 ml EDV(sp4-el): 69.8 ml LVAs ap4: 13.3 cm2 LVLs ap4: 5.7 cm ESV(MOD-sp4): 26.5 ml ESV(sp4-el): 26.0 ml EF(MOD-sp4): 60.1 % EF(sp4-el): 62.8 % LVAd ap2: 24.6 cm2 SV(MOD-sp4): 39.9 ml SV(MOD-sp2): 50.7 ml LVLd ap2: 7.1 cm EDV(MOD-sp2): 70.4 ml EDV(sp2-el): 72.9 ml LVAs ap2: 11.2 cm2 LVLs ap2: 5.5 cm ESV(MOD-sp2): 19.7 ml ESV(sp2-el): 19.3 ml EF(MOD-sp2): 72.0 % SV(sp4-el): 43.8 ml Ao sinus diam: 3.[address] Junction: 2.6 cm LA dimension(2D): 3.7 cm LA A4 area: 21.6 cm2 RA A4 area: 7.9 cm2 TAPSE: 1.7 cm Time Measurements MV dec time: 0.26 sec Doppler Measurements & Calculations MV E max suleman: 68.0 cm/sec Lat Peak E' Suleman: 7.3 cm/sec Med Peak E' Suleman: 5.2 cm/sec MV A max suleman: 105.4 cm/sec E/E' lat: 9.3 E/E' med: 13.0 MV E/A: 0.65 MV dec slope: 266.5 cm/sec2 Ao V2 max: 160.8 cm/sec AI max suleman: 348.4 cm/sec Ao max P.3 mmHg AI max P.6 mmHg Ao V2 mean: 104.6 cm/sec AI dec slope: 115.3 cm/sec2 Ao mean P.9 mmHg AI P1/2t: 884.8 msec Ao V2 VTI: 34.2 cm AV (velocity ratio): 0.73 SUKUMAR(I,D): 2.2 cm2 SUKUMAR(V,D): 2.0 cm2 LV V1 max: 106.8 cm/sec SV(LVOT): 75.0 ml PA V2 max: 113.6 cm/sec LV V1 max P.6 mmHg PA max PG (full): 2.3 mmHg LV V1 mean P.2 mmHg LV V1 mean: 67.5 cm/sec LV V1 VTI: 24.9 cm TR max suleman: 220.7 cm/sec TR max P.5 mmHg ECHO/Echo Complete Interpretation Summary Normal LV size. Left ventricular systolic function is normal. The left ventricular ejection fraction is 60 %. Mild concentric left ventricular hypertrophy. Stage 1 diastolic dysfunction. Moderate focal aortic valve calcification. Ordering Physician: Andrei Henry Referring Physician: Jones Madrigal Chi Performed By: Mary Ryan RDCS
--- NOTE | 2024-05-19 16:38 | STRESSREP ---
Stress Test Report Pharmacologic myocardial perfusion stress test. 84-year-old man with a history of coronary disease Resting EKG demonstrates sinus bradycardia with a rate of 53 bpm. Resting blood pressure is 152/78 mmHg. 0.4 mg of regadenoson was infused per usual protocol followed by rapid intravenous saline flush injection. Continuous EKG monitoring was performed. The maximum heart rate was 81 bpm which was 59% of max impacted heart rate the maximum workload was 1 metabolic equivalent. At rest there were no ST or T wave changes noted to suggest ischemia and at peak infusion nonspecific ST changes were noted which did not meet the criteria for ischemia. No clinical angina is noted. The final blood pressure was 148/80 mmHg. Myocardial perfusion protocol. 11.5 mCi of technetium 99m sestamibi was injected at rest. 0.4 mg of regadenoson was infused per usual protocol. At peak infusion 33.8 mCi of technetium 99m sestamibi was injected stress images were obtained stress and rest images were reconstructed and compared in the short axis vertical long and horizontal long axis. Gated images were also obtained. Perfusion SPECT analysis: Review of the stress images demonstrate normal uptake of tracer noted in all areas of the myocardium. The resting images similar demonstrated normal uptake of tracer noted in all areas of the myocardium. No areas of reversibility are noted to suggest ischemia and no previous infarct is noted. Gated SPECT analysis: The gated ejection fraction is 68%. Conclusion: Normal pharmacologic myocardial perfusion stress test. Preserved ejection fraction.
== END | disposition home or self-care (01) ==
LOC: CVS 06:10
PROVIDERS: PCP Family Medicine Geriatric Medicine; Referring Provider Internal Medicine Cardiovascular Disease; Visit Provider Internal Medicine Cardiovascular Disease
DX: I25.10 Atherosclerotic heart disease of native coronary artery without angina pectoris (principal); I35.0 Nonrheumatic aortic (valve) stenosis
CPT/HCPCS: 78452; 93017; 93306; A9500; A4216; J2785

== ENCOUNTER → 2024-09-08 | Outpatient (CLI) | payer MEDICARE, BC, SELFPAY ==
[2024-09-08 09:17] LABS: Absolute Lymphocyte Count 1.94 X10^3/uL (0.83-4.51); Absolute Neutrophil Count 2.8 X10^3/uL (2.0-7.7); Basophil# 0.06 X10^3/uL; Basophil% 1.1 % (0-1); Eosinophil# 0.07 X10^3/uL; Eosinophils% 1.3 % (0-5); Hematocrit 39.7 % (40-54); Hemoglobin 13.9 g/dL (13.0-16.5); Lymphocyte # 1.94 X10^3/ul (0.83-4.51); Lymphocyte % 35.2 % (19-41); Mean Corpuscular Hgb 33.1 pg (27.0-32.0); Mean Corpuscular Volume 94.5 fL (80-94); Monocyte# 0.63 X10^3/uL; Monocyte% 11.4 % (0-10); NRBC Flagged by Analyzer 0 % (0-5); Neutrophil # 2.79 X10^3/uL (2.7-7.7); Neutrophil % 50.6 % (47-70); Platelet Count 196 K/mm3 (150-450); RBC Distribution Width CV 13.5 % (11.6-14.6); RBC Distribution Width SD 47.1 fl (35.1-43.9); White Blood Count 5.5 K/mm3 (4.4-11.0)
[2024-09-08 10:02] LABS: ALB/GLOB Ratio 1.1 RATIO (0.9-2.4); AST(SGOT) 29 U/L (15-37); Alanine Aminotransfer ALT/SGPT 23 U/L (16-61); Albumin, Serum 3.9 g/dL (3.2-5.0); Alkaline Phosphatase 49 U/L (45-117); Anion Gap 10 (5-15); BUN 17 mg/dL (7-18); BUN/Creat Ratio 17.1 RATIO (10-20); Calcium,Total 9.4 mg/dL (8.5-10.1); Chloride 97 mmol/L (98-107); Creatinine, Serum 0.99 mg/dL (0.70-1.30); EST Glomerular Filtration Rate 76 mL/min (>60); Est Glom Filt Rate - Afr Amer 93 mL/min (>60); Globulin 3.7 g/dL (2.2-4.2); Glucose 109 mg/dL (74-106); Potassium 3.6 mmol/L (3.5-5.1); Protein, Total 7.6 g/dL (6.4-8.2); Sodium Level 132 mmol/L (136-145); Thyroid Stim Hormone (TSH) 0.978 uIU/mL (0.358-3.740); Uric Acid 4.6 mg/dL (3.5-7.2)
[2024-09-08 10:05] LABS: Vitamin D,25 Hydroxy 32.7 ng/mL
== END | disposition home or self-care (01) ==
LOC: POLAB3 09:04
PROVIDERS: PCP Family Medicine Geriatric Medicine; Visit Provider Family Medicine Geriatric Medicine
DX: I10 Essential (primary) hypertension (principal); E55.9 Vitamin D deficiency, unspecified; M10.9 Gout, unspecified
CPT/HCPCS: 36415; 80053; 82306; 84443; 84550; 85025

== ENCOUNTER → 2024-10-27 | Outpatient (CLI) | payer MEDICARE, BC, SELFPAY ==
[2024-10-27 11:40] LABS: AST(SGOT) 32 U/L (<=37); Alanine Aminotransfer ALT/SGPT 19 U/L (<=46); Albumin, Serum 4.3 g/dL (3.4-4.8); Alkaline Phosphatase 53 U/L (40-129); Bilirubin, Direct 0.42 mg/dL (0.00-0.30); Cholesterol 164 mg/dL (<=200); Globulin 3.1 g/dL (2.2-4.2); High Density Lipoprotein 64 mg/dL; Low Density Lipoprotein Calc. 84 mg/dL; Protein, Total 7.4 g/dL (5.9-8.4); Total Bilirubin 1.04 mg/dL (0.00-1.30); Triglycerides 81 mg/dL; Very Low Density Lipoprotein 16 mg/dL (5-40); cholesterol:hdl ratio screen 2.55
== END | disposition home or self-care (01) ==
LOC: LAB 09:56
PROVIDERS: PCP Family Medicine Geriatric Medicine; Referring Provider Internal Medicine Cardiovascular Disease; Visit Provider Internal Medicine Cardiovascular Disease
DX: E78.5 Hyperlipidemia, unspecified (principal); I25.10 Atherosclerotic heart disease of native coronary artery without angina pectoris
CPT/HCPCS: 36415; 80061; 80076

== ENCOUNTER 2024-12-31 14:26 | Emergency (ER) | payer MEDICARE, BC, SELFPAY ==
[2024-12-31 14:27] VITALS: BP 155/87; PULSE 88; RESP 18; TEMP 36.4; O2SAT 100
--- NOTE | 2024-12-31 14:57 | EKG12_ITS ---
Test Reason : Blood Pressure : */* mmHG Vent. Rate : 85 BPM Atrial Rate : 85 BPM P-R Int : 206 ms QRS Dur : 140 ms QT Int : 416 ms P-R-T Axes : 38 -76 -14 degrees QTcB Int : 495 ms Normal sinus rhythm Right bundle branch block Left anterior fascicular block Bifascicular block Abnormal ECG Confirmed by NATE MCCLENDON, REYMUNDO ([id number]), image editor BRIGID PENDLETON ([id number]) on 01/04/2025 7:03:35 AM Referred By: Confirmed By: REYMUNDO SULLIVAN MD
--- NOTE | 2024-12-31 15:00 | RAD_ITS ---
EXAM: XR Chest, 1 View CLINICAL INDICATION: WEAKNESS TECHNIQUE: Frontal view of the chest. COMPARISON: No relevant prior studies available. FINDINGS: LUNGS AND PLEURAL SPACES: Unremarkable. No consolidation. No pneumothorax. HEART: Unremarkable. No cardiomegaly. MEDIASTINUM: Unremarkable. Normal mediastinal contour. BONES/JOINTS: Unremarkable. No acute fracture. RAD/Chest 1 View (Portable) IMPRESSION: No acute cardiopulmonary process. Reading [facility] [place]
[2024-12-31] MEDS: Ondansetron ODT 4 MG Tablet 8 MG PO (15:19)
[2024-12-31 15:26] VITALS: BP 135/84; PULSE 80; RESP 12; O2SAT 98
--- NOTE | 2024-12-31 15:46 | EX.ED.DYSGE1 ---
HPI History of Present Illness Chief Complaint: Overdose Informant: patient and spouse/S.O. Narrative Narrative: 84-year-old male has been feeling nauseated all morning, started at some point after he took his medications, and then his was speaking with him and he was not sure if he took his morning medications twice thinks maybe he did. He is not sure. He has been started on dementia medication 1 or 2 weeks ago, states he has been just taking it a few days and sometimes he can make people feel nauseated. He has had no syncope or other symptoms today but the noticed that he was little sweaty on his forehead earlier. He denies any other symptoms or pain. states he is at his baseline mental status. [facility] Medical History Mild aortic valve stenosis Right bundle branch block (RBBB) with left anterior fascicular block Vertigo Essential (primary) hypertension Carotid bruit Bilateral carotid artery stenosis Hypothyroidism Atherosclerotic heart disease of [place] coronary artery without angina pectoris HLD (hyperlipidemia) Home Medications ?Medication ?Instructions ?Recorded ?Last Taken ?Type allopurinol 300 mg tablet 300 mg PO QDAY gout 90 days #90 12/01/17 11/20/18 08:00 History tabs 300 mg aspirin 81 mg tablet,delayed 81 mg PO QDAY 12/01/17 11/20/18 08:00 History release (Adult Low Dose Aspirin) multivitamin (Men's Multi-Vitamin 1 tab PO QDAY 12/01/17 11/20/18 10:00 History tablet) vitamin B complex (Vitamins B 1 tab PO QDAY 12/01/17 11/20/18 10:00 History Complex tablet) cholecalciferol (vitamin D3) 25 25 mcg PO DAILY 10/29/22 Unknown History mcg (1,000 unit) tablet amlodipine 5 mg tablet 5 mg PO DAILY #90 TABLETS 01/29/24 Unknown Rx hydrochlorothiazide 25 mg tablet 25 mg PO DAILY #90 TABLETS 01/29/24 Unknown Rx clopidogrel 75 mg tablet 75 mg PO DAILY #90 tabs 05/03/24 Unknown Rx atorvastatin 40 mg tablet 40 mg PO DAILY #90 tabs 10/28/24 Unknown Rx metoprolol succinate 100 mg 100 mg PO DAILY #90 tabs 10/28/24 Unknown Rx tablet,extended release 24 hr ondansetron 8 mg disintegrating 8 mg PO Q8H PRN nausea and 12/31/24 Unknown Rx tablet vomiting #12 tabs Allergy/AdvReac Type Severity Reaction Status Date / Time lisinopril Allergy Intermediate Angioedema Verified 12/31/24 14:27 Family History Mother Hypertension Sister Hypertension Surgical History History of left heart catheterization (02/21/06) History of rectal polypectomy (1997) 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) Social History Smoking Status: Former smoker alcohol intake: current alcohol intake frequency: 3 or more drinks per day Alcohol type: hard liquor caffeine: Yes what type of physical activity do you participate in: weight training frequency: 3-4 times per week duration: 30-45 minutes/day seatbelt use: always do you feel safe at home: Yes ROS ROS ED Constitutional Constitutional ED: Reports sweats; Denies chills or fever(s) Eyes Eyes: Denies change in vision or diplopia ENT ENT ED: Denies rhinorrhea or sore throat Cardiovascular Cardiovascular: Denies chest pain or palpitations Respiratory/Chest Respiratory/Chest: Denies cough or dyspnea Gastrointestinal Gastrointestinal: Reports nausea and vomiting; Denies abdominal pain or diarrhea Genitourinary Genitourinary ED: Denies dysuria or hematuria Musculoskeletal Musculoskeletal: Denies back pain or neck pain Integumentary Denies abscess or rash Neurologic Neurologic: Denies headache(s), paresthesias or weakness Psychiatric Psychiatric: Denies anxiety or suicidal thoughts EXAM Physical Exam Const Vital Signs: 12/31/24 14:27 12/31/24 15:26 12/31/24 16:00 Temperature 97.6 F L Temperature Source Temporal Pulse Rate 88 80 89 Respiratory Rate 18 12 20 H Blood Pressure 155/87 H 135/84 H 137/76 H Blood Pressure Mean 109 101 96 Pulse Ox 100 98 100 Oxygen Delivery Method Room Air Room Air 12/31/24 17:00 12/31/24 17:31 Temperature 98.3 F Temperature Source Pulse Rate 84 84 Respiratory Rate 16 16 Blood Pressure 132/77 H 132/77 H Blood Pressure Mean 95 95 Pulse Ox 100 100 Oxygen Delivery Method Positive well nourished and well developed General Appearance ED: well developed and NAD HEENT Reports moist mucous membranes normocephalic and atraumatic Eyes PERRL and EOMs intact bilaterally Neck full ROM and supple Resp normal respiratory effort and clear to auscultation bilaterally Cardio regular rate, regular rhythm and no murmurs GI non-tender and non-distended Auscultation: normoactive bowel sounds Palpation: soft Back/Spine no CVA tenderness General Back: other FROM Extremity normal to inspection General Extremety ED: Negative for edema, pulses abnormal or tenderness General Extremity: Negative for edema or pulses abnormal Neuro oriented x3, CN's II-XII intact bilaterally and no sensory deficits noted Sensorium / Orientation: awake and alert Motor Exam: strength 5/5 throughout Skin no rashes or lesions noted and no wounds MDM MDM MDM Narrative Medical decision making narrative: I reviewed the patient's medication. When I would be concerned about him doubling up on is metoprolol succinate 100 mg. However right now, his blood pressure is 155/87 and his pulse is in the 80s, suggesting that he did not do that. Will continue to monitor this. The checked his blood pressure at home and states he was in the 140s which also was reassuring. In the meantime ruling out other potential causes of nausea in an elderly male such as acute coronary syndrome, infection, metabolic disturbance. His EKG shows nothing acute and is unchanged compared with his prior. A 1 view chest x-ray my interpretation shows no pneumonia, radiology in agreement. Initially gave us urine which looked normal as well ruling out infection there. The patient felt much better after the Zofran, his blood pressure remained in the 130-140 range with pulse in the 80s, my suspicion is that he did not take extra doses of his medications this morning but even if he did, his vital signs are stable and he is reassured discharged with his family, advised to continue his medications as prescribed. They are comfortable with that plan. Lab Data Attestation: I reviewed the patient's lab results. Labs: Laboratory Results - last 24 hr 12/31/24 12/31/24 15:07 17:03 WBC 9.3 RBC 4.13 L Hgb 13.8 Hct 38.5 L MCV 93.2 MCH 33.4 H MCHC 35.8 RDW Std Deviation 45.8 H RDW Coeff of Olivia 13.3 Plt Count 204 MPV 10.7 Immature Gran % (Auto) 0.500 Neut % (Auto) 83.1 H Lymph % (Auto) 12.9 L Coke % (Auto) 3.3 Eos % (Auto) 0.0 Baso % (Auto) 0.2 Absolute Neuts (auto) 7.7 Absolute Lymphs (auto) 1.19 Nucleated RBC % 0 Sodium 129 L Potassium 3.4 Chloride 92 L Carbon Dioxide 22.4 Anion Gap 14 BUN 19 Creatinine 0.97 Est GFR (MDRD) Non-Af 78 BUN/Creatinine Ratio 19.2 Glucose 169 H Calcium 10.0 Troponin T High Sens 11 Urine Color Yellow Urine Clarity Clear Urine pH 6.5 Ur Specific [place] 1.010 Urine Protein 100 H Urine Glucose (UA) Normal Urine Ketones 5 H Urine Occult Blood Negative Urine Nitrite Negative Urine Bilirubin Negative Urine Urobilinogen Normal Ur Leukocyte Esterase Negative Urine RBC 0 SEEN Urine WBC 0 SEEN Ur Squamous Epith Cells 0 SEEN Urine Bacteria 0 SEEN Urine Mucus 0 SEEN Radiography Diagnostic Testing: Clinical Impression(s) from Imaging Studies Chest X-Ray 12/31/24 15:00 IMPRESSION: No acute cardiopulmonary process. Reading Location: [facility] Rhythm Strip Rhythm Strip: Sinus Rhythm Rate: 87 Ectopy: None EKG Initial EKG: Attestation: I personally reviewed and interpreted this EKG as follows: Interpretation: Sinus Rhythm, No Acute Injury Pattern, RBBB and LAFB Prior EKG tracings: available for review Prior: Unchanged (2019) Discharge Plan Triage Chief Complaint: Overdose ED Provider: Jaquan Brice Dx/Rx/DC Orders Clinical Impression: Nausea and vomiting, Encounter for medical screening examination Instructions: ED Screening Exam Medical Nonurgent Prescriptions: New ondansetron 8 mg tablet,disintegrating 8 mg PO Q8H PRN (Reason: nausea and vomiting) Qty: 12 0RF No Action allopurinol 300 mg tablet 300 mg PO QDAY 90 Days Qty: 90 Patient Comments: aspirin [Adult Low Dose Aspirin] 81 mg tablet,delayed release (DR/EC) 81 mg PO QDAY vitamin B complex [Vitamins B Complex] tablet 1 tab PO QDAY multivitamin [Men's Multi-Vitamin] tablet 1 tab PO QDAY cholecalciferol (vitamin D3) 25 mcg (1,000 unit) tablet 25 mcg PO DAILY atorvastatin 40 mg tablet 40 mg PO DAILY Qty: 90 3RF metoprolol succinate 100 mg tablet extended release 24 hr 100 mg PO DAILY Qty: 90 3RF hydrochlorothiazide 25 mg tablet 25 mg PO DAILY Qty: 90 3RF amlodipine 5 mg tablet 5 mg PO DAILY Qty: 90 3RF clopidogrel 75 mg tablet 75 mg PO DAILY Qty: 90 3RF Primary Care Provider: oJnes Madrigal Chi Referrals: Jones Madrigal Chi, MD [Primary Care Provider] - (next week or when able) Print Language: Japanese Disposition Disposition: Home, Self Care Discharge Date/Time: 12/31/24 17:32
[2024-12-31 15:48] LABS: Absolute Lymphocyte Count 1.19 X10^3/uL (0.83-4.51); Absolute Neutrophil Count 7.7 X10^3/uL (2.0-7.7); Basophil# 0.02 X10^3/uL; Basophil% 0.2 % (0-1); Hematocrit 38.5 % (40-54); Hemoglobin 13.8 g/dL (13.0-16.5); Lymphocyte # 1.19 X10^3/ul (0.83-4.51); Lymphocyte % 12.9 % (19-41); Mean Corp Hgb Conc 35.8 g/dL (32-36); Mean Corpuscular Hgb 33.4 pg (27.0-32.0); Mean Corpuscular Volume 93.2 fL (80-94); Mean Platelet Vol. 10.7 fl (6.2-12.0); Monocyte# 0.31 X10^3/uL; Monocyte% 3.3 % (0-10); NRBC Flagged by Analyzer 0 % (0-5); Neutrophil # 7.69 X10^3/uL (2.7-7.7); Neutrophil % 83.1 % (47-70); Platelet Count 204 K/mm3 (150-450); RBC Distribution Width CV 13.3 % (11.6-14.6); RBC Distribution Width SD 45.8 fl (35.1-43.9); Red Blood Count 4.13 M/mm3 (4.6-6.2); White Blood Count 9.3 K/mm3 (4.4-11.0)
[2024-12-31 16:00] VITALS: BP 137/76; PULSE 89; RESP 20; O2SAT 100
[2024-12-31 16:01] LABS: Anion Gap 14 (5-15); BUN 19 mg/dL (4-19); BUN/Creat Ratio 19.2 RATIO (10-20); Carbon Dioxide 22.4 mmol/L (21.0-32.0); Chloride 92 mmol/L (98-108); Creatinine, Serum 0.97 mg/dL (0.70-1.20); EST Glomerular Filtration Rate 78 (>60); Glucose 169 mg/dL (70-99); Potassium 3.4 mmol/L (3.3-5.1); Sodium Level 129 mmol/L (133-145); Troponin T High Sensitivity 11 ng/L (<=22)
[2024-12-31 17:00] VITALS: BP 132/77; PULSE 84; RESP 16; O2SAT 100
[2024-12-31 17:28] LABS: Bacteria 0 SEEN /hpf (None Seen); Mucous, Urine 0 SEEN /hpf (<or=2+); Red Blood Cells-Urine 0 SEEN /hpf (0-5); Squamous Epithelial Cells - UA 0 SEEN /hpf (0-5); White Blood Cells 0 SEEN /hpf (0-5)
[2024-12-31 17:31] VITALS: BP 132/77; PULSE 84; RESP 16; TEMP 36.8; O2SAT 100
[2024-12-31 17:32] LABS: Color, Urine Yellow (Yellow); Glucose, Dipstick Normal (Normal); Ketone-Dipstick 5 mg/dl (Negative); Leukocyte Esterase-Dipstick Negative /ul (Negative); Nitrite-Dipstick Negative (Negative); Occult Blood-Urine Negative /ul (Negative); Protein-Dipstick 100 mg/dl (Negative); Urine Bilirubin Dipstick Negative (Negative); Urine Clarity Clear (Clear); Urine Urobilinogen Normal (Normal); Urine pH 6.5 (5.0 - 8.0)
== END 2024-12-31 17:32 | disposition home or self-care (01) ==
PROVIDERS: Emergency Provider Emergency Medicine; PCP Family Medicine Geriatric Medicine; Visit Provider Emergency Medicine
DX: R11.2 Nausea with vomiting, unspecified (principal); I25.10 Atherosclerotic heart disease of native coronary artery without angina pectoris; I10 Essential (primary) hypertension; E78.5 Hyperlipidemia, unspecified; Z87.891 Personal history of nicotine dependence; Z79.82 Long term (current) use of aspirin; Z79.899 Other long term (current) drug therapy; Z96.653 Presence of artificial knee joint, bilateral
CPT/HCPCS: 71045; 80048; 81001; 84484; 85025; 93005; 99282; A4216

== ENCOUNTER → 2025-03-08 | Outpatient (CLI) | payer MEDICARE, BC, SELFPAY ==
[2025-03-08 12:31] LABS: Hematocrit 37.2 % (40-54); Hemoglobin 13.3 g/dL (13.0-16.5); Immature Granulocytes Count 0.090 X10^3/uL (0.0-0.0); Mean Corp Hgb Conc 35.8 g/dL (32-36); Mean Corpuscular Volume 94.2 fL (80-94); Mean Platelet Vol. 10.7 fl (6.2-12.0); NRBC Flagged by Analyzer 0 % (0-5); Platelet Count 208 K/mm3 (150-450); RBC Distribution Width CV 14.0 % (11.6-14.6); RBC Distribution Width SD 48.1 fl (35.1-43.9); Red Blood Count 3.95 M/mm3 (4.6-6.2); White Blood Count 7.2 K/mm3 (4.4-11.0)
[2025-03-08 13:00] LABS: Bilirubin, Direct 0.54 mg/dL (0.00-0.30)
[2025-03-08 13:18] LABS: AST(SGOT) 31 U/L (<=37); Alanine Aminotransfer ALT/SGPT 17 U/L (<=46); Albumin, Serum 4.2 g/dL (3.4-4.8); Alkaline Phosphatase 49 U/L (40-129); Anion Gap 14 (5-15); BUN 14 mg/dL (4-19); BUN/Creat Ratio 13.4 RATIO (10-20); Calcium,Total 9.5 mg/dL (7.6-11.0); Carbon Dioxide 22.6 mmol/L (21.0-32.0); Chloride 96 mmol/L (98-108); Globulin 3.0 g/dL (2.2-4.2); Glucose 103 mg/dL (70-99); Potassium 3.8 mmol/L (3.3-5.1); Uric Acid 5.0 mg/dL (3.5-7.2); Vitamin D,25 Hydroxy 34.6 ng/mL (30-100)
[2025-03-08 19:40] LABS: Xtra Tube Kwok EXTRA TUBE
== END | disposition home or self-care (01) ==
LOC: POLAB3 11:39
PROVIDERS: Internal Medicine Cardiovascular Disease; PCP Family Medicine Geriatric Medicine; Visit Provider Family Medicine Geriatric Medicine
DX: I10 Essential (primary) hypertension (principal); E55.9 Vitamin D deficiency, unspecified; M10.9 Gout, unspecified
CPT/HCPCS: 36415; 80053; 82248; 82306; 84443; 84550; 85025

== ENCOUNTER → 2025-06-24 | Outpatient (CLI) | payer MEDICARE, BC, SELFPAY ==
[2025-06-24 10:32] LABS: Cholesterol 156 mg/dL (<=200); Low Density Lipoprotein Calc. 72 mg/dL; Triglycerides 71 mg/dL; Very Low Density Lipoprotein 14 mg/dL (5-40); cholesterol:hdl ratio screen 2.22
[2025-06-24 10:44] LABS: AST(SGOT) 31 U/L (<=37); Alanine Aminotransfer ALT/SGPT 15 U/L (<=46); Albumin, Serum 4.2 g/dL (3.4-4.8); Alkaline Phosphatase 57 U/L (40-129); Bilirubin, Direct 0.48 mg/dL (0.00-0.30)
[2025-06-24 10:50] LABS: Globulin 2.9 g/dL (2.2-4.2)
== END | disposition home or self-care (01) ==
LOC: LAB 09:14
PROVIDERS: PCP Family Medicine Geriatric Medicine; Referring Provider Internal Medicine Cardiovascular Disease; Visit Provider Internal Medicine Cardiovascular Disease
DX: E78.00 Pure hypercholesterolemia, unspecified (principal)
CPT/HCPCS: 36415; 80061; 80076